=== PATIENT | male | born 1985 | race Caucasian/White ===

== ENCOUNTER 2021-05-19 19:07 | Emergency (ER) | payer SELFPAY ==
[~2021-05-19] VITALS: Ht 193 cm; Wt 122.0 kg
--- OUTSIDE RECORDS SUMMARY | 2021-05-19 19:12 | XMS REPORT | Encounter Summary ---
Author Author [facility] Organization [facility] Address Unknown Phone Unavailable Care Team Providers Care Show Jumping Instructor Name Role Phone Luke Brewer MD PCP Reason for Visit * Reason Comments Back Pain Nausea Encounter Details Care Team Description Date Type Department Gela Jordan PA-C [address] [place] [address] Gastroenteritis (Primary Dx) 03/30/2021 Emergency [facility] [address] [place] [address] Social History Date Tobacco Use Types Packs/Day Years Used Current Every Day Smoker Cigarettes 1 Smokeless Tobacco: Never Used Comments Alcohol Use Standard Drinks/Week Never 0 (1 standard drink = 0.6 o z pure alcohol) Alcohol Habits Answer Date Recorded How often do you have a drink containing alcohol? Never 03/30/2021 How many drinks containing alcohol do you have on No t asked a typical day when you are drinking? How often do you have six or more drinks on one Not asked occasion? Comment: Not asked Sex Assigned at Date Recorded Not on file documented as of this encounter Last Filed Vital Signs Reading Time Taken Comments Vital Sign 137/88 03/30/2021 10:22 AM CDT Blood Pressure 80 03/30/2021 10:22 AM CDT Pulse 36.1 C (97 F) 03/30/2021 10:22 AM CDT Temperature 18 03/30/2021 10:22 AM CDT Respiratory Rate 98% 03/30/2021 10:22 AM CDT Oxygen Saturation - - Inhaled Oxygen Concentration 122.5 kg (270 lb) 03/30/2021 7:29 AM CDT Weight 190.5 cm (6' 3") 03/30/2021 7:29 AM CDT Height 33.75 03/30/2021 7:29 AM CDT Body Mass Index documented in this encounter Discharge Instructions * Instructions* Gela Jordan PA-C - 03/30/2021 Start Zofran and Protonix Clear liquid diet, advance as tolerated Follow up with Dr Brewer Monday for recheck Any worsening of symptoms follow up in ER * Attachments The following attachments cannot be sent through Care Everywhere.* Gastroenteritis, Noninfectious (Vietnamese) documented in this encounter Medications at Time of Discharge Start Date End Date Medication Sig Dispensed Refills cetirizine (ZYRTEC) 10 mg Take by 0 cap mouth. fluticasone propionate Use 1 spray 0 (FLONASE) 50 in each mcg/actuation nasal spray nostril daily. naproxen (NAPROSYN) 250 Take 250 mg 0 MG tablet by mouth 2 (two) times a day with meals. 03/30/2021 ondansetron (ZOFRAN ODT) Take 1 tablet 20 tablet 0 4 MG disintegrating (4 mg total) tablet by mouth every 8 (eight) hours as needed for nausea. 03/30/2021 pantoprazole (PROTONIX) Take 2 30 tablet 0 20 MG tablet tablets (40 mg total) by mouth daily. documented as of this encounter ED Notes * Charisma Priest RN - 03/30/2021 9:37 AM CDT Called to patient room. Pt has complaints of itching all over. He is requestin gatito mistry. Pain down to 2/10. * Charisma Priest RN - 03/30/2021 9:14 AM CDT Pt states that his pain is down to a 3/10 but he is still grimacing. His stomac h pain is gone. * Gela Jordan PA-C - 03/30/2021 8:04 AM CDT [facility] Chief Complaint Patient presents with Back Pain Nausea Chief complaint: Abdominal pain, low back pain History of present illness: 36-year-old male presents to the emergency room per private vehicle with concern of left lower quadrant, left flank pain. Patient s tates pain started abruptly at approximately 0 500 this morning. Pain has been persistently sharp, moderate to severe, has not noticed anything that worsens or improves the discomfort. Patient has been on a 10-day quarantine secondary to being exposed to Covid from a family member but denies any cough, shortness of b reath, fever or chills. Patient has had a history of kidney stones but was able to pass it without any complications several years ago. Patient does admit to nausea, vomiting this a.m. Past Medical History: Diagnosis Date History of stomach ulcers Hypertension Past Surgical History: Procedure Laterality Date ABDOMINAL SURGERY No family history on file. Social History Tobacco Use Smoking status: Current Every Day Smoker Packs/day: 1.00 Types: Cigarettes Smokeless tobacco: Never Used Vaping Use Vaping Use: Never used Substance Use Topics Alcohol use: Never Drug use: Never Review of Systems Constitutional: Negative. HENT: Negative. Eyes: Negative. Respiratory: Negative. Cardiovascular: Negative. Gastrointestinal: Positive for abdominal pain, nausea and vomiting. Genitourinary: Negative. Musculoskeletal: Negative. Skin: Negative. Neurological: Negative. Hematological: Negative. Physical Exam BP 126/81 | Pulse 87 | Temp 97.8 F (36.6 C) (Oral) | Resp 18 | Ht 1.905 m (6' 3") | Wt 122.5 kg (270 lb) | SpO2 94% | BMI 33.75 kg/m Weight Method: Stated O2 Device: None (Room air) Physical Exam Constitutional: General: He is in acute distress. HENT: Head: Normocephalic and atraumatic. Nose: Nose normal. Mouth/Throat: Mouth: Mucous membranes are moist. Pharynx: Oropharynx is clear. Cardiovascular: Rate and Rhythm: Normal rate and regular rhythm. Pulmonary: Effort: Pulmonary effort is normal. Abdominal: General: Abdomen is flat. There is no distension. Palpations: There is no mass. Tenderness: There is abdominal tenderness. There is left CVA tenderness and g uarding. There is no rebound. Hernia: No hernia is present. Musculoskeletal: General: Normal range of motion. Skin: General: Skin is warm. Capillary Refill: Capillary refill takes less than 2 seconds. Neurological: General: No focal deficit present. ED Course Procedures MDM Results for orders placed or performed during the hospital encounter of 03/30/21 (from the past 24 hour(s)) Electrocardiogram (ECG) Result Value Ref Range QRSd 96 QT 388 QTC 448 ECGHR 80 ECGPR 160 CBC and Diff (manual diff if necessary) Result Value Ref Range WBC 10.34 4.00 - 11.00 TH/uL RBC 4.90 4.31 - 5.84 MIL/uL Hemoglobin 15.5 13.0 - 17.0 g/dL Hematocrit 44 40 - 50 % MCV 90 80.0 - 99.0 fL MCH 32 27.0 - 34.0 pg MCHC 35 32 - 36 % RDW 13.9 11.5 - 14.5 % Platelet Count 257 140 - 400 TH/uL MPV 10.7 9.4 - 12.3 fL % Neutrophils 65 45 - 78 % %Lymphocytes 21 15 - 47 % % Monocytes 6 0 - 12 % %Eosinophils 7 0 - 7 % %Basophils 1 0 - 2 % % Imm Grans 0 0 - 1 # Granulocytes 6.68 1.7 - 6.8 TH/uL # Lymphocytes 2.20 1.00 - 3.30 TH/uL # Monocytes 0.65 0.20 - 0.90 TH/uL # Eosinophils 0.68 (H) 0.00 - 0.40 TH/uL # Basophils 0.11 (H) 0.00 - 0.10 TH/uL Comprehensive Metabolic Panel Result Value Ref Range Sodium 140 133 - 147 MEQ/L Potassium 4.1 3.5 - 5.3 MEQ/L Chloride 111 96 - 112 MEQ/L Carbon Dioxide 22 20 - 32 MEQ/L Anion Gap 7 5 - 17 Calcium 9.2 8.4 - 10.5 mg/dL Glucose 110 (H) 70 - 100 mg/dL Protein Total Serum 6.6 6.0 - 8.2 g/dL Albumin 4.0 3.5 - 5.0 g/dL Alkaline Phosphatase 82 42 - 140 IU/L Alanine Aminotransferase 24 0 - 49 IU/L Aspartate Aminotransferase 35 15 - 46 IU/L Bilirubin Total 0.3 0.2 - 1.3 mg/dL Blood Urea Nitrogen 27 (H) 7 - 26 mg/dL Creatinine 0.9 0.6 - 1.3 mg/dL eGFR Male AA 114 60 - 200 mL/min/1.73sq m eGFR Male Non-AA 94 60 - 200 mL/min/1.73sq m Lipase Result Value Ref Range Lipase 75 23 - 300 IU/L Troponin Result Value Ref Range Troponin <0.01 0.00 - 0.03 ng/mL COVID FLU PCR - Rapid Specimen: NASOPHARYNGEAL SWAB Result Value Ref Range Influenza A PCR Not Detected Not Detected Influenza B PCR Not Detected Not Detected Source Nasopharynx SARS-CoV-2 PCR Negative Negative Urinalysis Reflex Result Value Ref Range Appearance, Urine Yellow Glucose Urine Negative Negative mg/dL Bilirubin Urine Negative Negative Ketones Urine Negative Negative mg/dL Specific [place], UA 1.025 1.001 - 1.030 Hemoglobin Urine Negative Negative PH Urine 5.5 5.0 - 8.0 Protein Urine Qual Negative Negative mg/dL Urobilinogen Urine Negative Negative EU/dL Nitrite Urine Negative Negative Leukocyte Esterase Negative Negative Electrocardiogram (ECG) Result Date: 03/30/2021 [facility] Test Date: 2021-03-30 Pat N dariela: JUMA BELTRE Department: [facility] ED Room: [facility] Gender: Male Techni juliane: [id number] : [id number] Requested By: GELA JORDAN Order Number: [id number] Reading MD: Measurements Intervals [place] Rate: 80 P: 60 NC: 160 QRS: 71 QRSD: 96 T: 47 QT: 388 QTc: 448 Interpretive Statements SINUS RHYTHM BORDERLINE INFERIOR Q WAVES CT Abdomen Pelvis wo contrast Result Date: 03/30/2021 Patient: JUMA BELTRE Sex#: M #: 1985 Toan#: [id number] Location: [facility] ED AED-03 Order ing Provider: GELA JORDAN Procedure Requested: [id number] CT ABDOMEN PELVIS WO CONTRAST Reason for Exam: Abdominal Pain Exam Ordered: 03/30/2021 0802 B egin exam date/time: 03/30/2021819 Exam Date/Time: 03/30/2021824 RAD IOLOGIC EXAM: ( 1. CT ABDOMEN WITHOUT CONTRAST. 2. CT PELVIS WITHOUT CONTRAST. I NDICATION: Abdominal pain PROCEDURE: Axial images obtained through the abdomen and pelvis without the administration of contrast. COMPARISON:none The evaluatio n of small lesions is hampered without the administration of contrast. ABDOMEN/P KIMMY FINDINGS: 1. LUNG BASES: The lung bases are clear without focal abnormali ties. 2. LIVER: The liver is normal in size without focal abnormalities. 3. SPL EEN: The spleen is normal in size without focal abnormalities. 4. GALLBLADDER/B ILE DUCTS: The gallbladder demonstrates no wall thickening or pericholecystic f luid. No significant bile duct dilatation is seen. 5. PANCREAS: The pancreas is normal in size without focal abnormalities or inflammatory change. 6. ADRENALS: The adrenals are normal in size with out focal mass or enlargement. 7. KIDNEYS: The kidneys demonstrate no radiopaque stones. No significant focal renal abno rmalities are seen on this noncontrast study. No significant hydroureter is seen . 8. RETROPERITONEUM: Mild aortic and plaquing without aneurysm noted. No adeno marisa is noted. 9. BOWEL: No focal bowel inflammatory changes are identified. N o obstruction, wall thickening, or other acute process is seen. No appendicitis is seen. 10. PERITONEUM: No free air, ascites, abscess, or other acute changes are seen. 11. BLADDER: The bladder demonstrates no significant wall thickening or inflammatory changes. No pelvic masses or pelvic adenopathy are seen. 12. ALEXANDRA WILLA: Mild to moderate degenerative disc changes are seen at several levels with some anterior spurring. No acute bony changes are seen. 13: MISCELLANEOUS: No other significant findings are detected. No obstructing stones or hydronephrosis seen No acute bowel inflammatory ch anges are seen. No abscess or free air is seen Dose reduction technique was used including one or more of the following: automated exposure control, iterative r econstruction technique, adjustment of MAA and KV according patient size and/or scan done according to ALARA (exposure dose as low as reasonably achievable). Medications Administered During Visit Medications sodium chloride 0.9% (NS) IV Bolus (1,000 mL Intravenous New Bag 03/30/21 0837) HYDROmorphone (DILAUDID) injection 1 mg (1 mg Intravenous Given 03/30/21 0813) ondansetron (ZOFRAN) injection 4 mg (4 mg Intravenous Given 03/30/21 0814) HYDROmorphone (DILAUDID) injection 1 mg (1 mg Intravenous Given 03/30/21 0846) famotidine (PEPCID) injection 20 mg (20 mg Intravenous Given 03/30/21 0856) Patient's Medications New Prescriptions ONDANSETRON (ZOFRAN ODT) 4 MG DISINTEGRATING TABLET Take 1 tablet (4 mg tota l) by mouth every 8 (eight) hours as needed for nausea. PANTOPRAZOLE (PROTONIX) 20 MG TABLET Take 2 tablets (40 mg total) by mouth d aily. Previous Medications CETIRIZINE (ZYRTEC) 10 MG CAP Take by mouth. FLUTICASONE PROPIONATE (FLONASE) 50 MCG/ACTUATION NASAL SPRAY Use 1 spray in each nostril daily. NAPROXEN (NAPROSYN) 250 MG TABLET Take 250 mg by mouth 2 (two) times a day w ith meals. Modified Medications No medications on file Discontinued Medications No medications on file Filed VS 03/30/21 0703/[id number] BP: (!) 141/92 126/81 Pulse: 87 Resp: 18 Temp: 97.8 F (36.6 C) SpO2: 96% 94% No follow-up provider specified. Patient given instructions. ED Clinical Impression 1. Gastroenteritis Start Zofran and Protonix Clear liquid diet, advance as tolerated Follow up with Dr Brewer Monday for recheck Any worsening of symptoms follow up in ER Patient ED Dispo ED Disposition Discharge Gela Jordan PA-C 03/30/21 1008 * Charisma Priest RN - 03/30/2021 7:53 AM CDT Pt ambulatory to ED 3 with chief complaint of back pain. Pt states that when he woke up at 0500, his pain was 8/10. In addition, he threw up yellow colored em esis. He does not know if he threw up due to the pain or if he was just nauseau s. Back pain is in low back. Pt does admit to black tarry stools and he has ulloa d a history of stomach ulcers. documented in this encounter Plan of Treatment Not on filedocumented as of this encounter Procedures Comments Procedure Name Priority Date/Time Associated Diag nosis URINALYSIS REFLEX STAT 03/30/2021 8:45 AM CDT COVID FLU PCR - RAPID STAT 03/30/2021 8:[address] ABDOMEN PELVIS WO STAT 03/30/2021 CONTRAST 8:25 AM CDT TROPONIN STAT 03/30/2021 7:48 AM CDT LIPASE STAT 03/30/2021 7:48 AM CDT COMPREHENSIVE METABOLIC STAT 03/30/2021 PANEL 7:48 AM CDT CBC AND DIFF (MANUAL DIFF STAT 03/30/2021 IF NECESSARY) 7:48 AM CDT ECG STAT 03/30/2021 7:41 AM CDT documented in this encounter Results * Urinalysis Reflex (03/30/2021 8:45 AM CDT) [facility] Appearance, Yellow [facility] Urine [facility] Lab Glucose Urine Negative Negative mg/dL [facility] Bilirubin Urine Negative Negative [facility] Lab Ketones Urine Negative Negative mg/dL [facility] Specific 1.025 1.001 - 1.030 [facility] [place], [facility] Lab Hemoglobin Negative Negative [facility] Lab PH Urine 5.5 5.0 - 8.0 [facility] Protein Urine Negative Negative mg/dL [facility] Qual [facility] Urobilinogen Negative Negative EU/dL [facility] Lab Nitrite Urine Negative Negative [facility] Leukocyte Negative Negative [facility] Esterase [facility] Lab Specimen Clean Voided Urine Performing Organization Address City/State/ZIP Code P candice Number [address] [address] Lab * COVID FLU PCR - Rapid (03/30/2021 8:39 AM CDT) [facility] Influenza A PCR Not Detected Not Detected [facility] Lab Influenza B PCR Not Detected Not Detected [facility] Lab Source Nasopharynx [facility] SARS-CoV-2 PCR NegativeComment: This RT-PCR Negative A [facility] test has been authorized by Hospital Lab the FDA under an Emergency Use Authorization (EUA) for use by authorized laboratories. Specimen NASOPHARYNGEAL SWAB Performing Organization Address City/State/ZIP Code P candice Number [place] [address] [place] [address] LAB [place] [address] [place], [place] [address] Lab * CT Abdomen Pelvis wo contrast (03/30/2021 8:25 AM CDT) Modality Anatomical Region Laterality Computed Tomography Abdomen, Pelvis Specimen Impressions [facility] - 03/30/2021 8:37 AM CDT No obstructing stones or hydronephrosis seen No acute bowel inflammatory changes are seen. No abscess or free air is seen Dose reduction technique was used including one or more of the following: automated exposure control, iterative reconstruction technique, adjustment of MAA and KV according patient size and/or scan done according to ALARA (exposure dose as low as reasonably achievable). Narrative [facility] - 03/30/2021 8:37 AM CDT Patient: JUMA BELTRE Sex#: M #: 1985 Toan#: [id number] Location: [facility]-03 Ordering Provider: GELA JORDAN Procedure Requested: [id number] CT ABDOMEN PELVIS WO CONTRAST Reason for Exam: Abdominal Pain Exam Ordered: 03/30/2021 0802 Begin exam date/time: 03/30/2021 0820 Exam Date/Time: 03/30/2021 0825 RADIOLOGIC EXAM: ( 1. CT ABDOMEN WITHOUT CONTRAST. 2. CT PELVIS WITHOUT CONTRAST. INDICATION: Abdominal pain PROCEDURE: Axial images obtained through the abdomen and pelvis without the administration of contrast. COMPARISON:none The evaluation of small lesions is hampered without the administration of contrast. ABDOMEN/PELVIS FINDINGS: 1. LUNG BASES: The lung bases are kye r without focal abnormalities. 2. LIVER: The liver is normal in size without focal abnormalities. 3. SPLEEN: The spleen is normal in siz e without focal abnormalities. 4. GALLBLADDER/BILE DUCTS: The gallbla dder demonstrates no wall thickening or pericholecystic fluid. No significant bile duct dilatation is seen. 5. PANCREAS: The pancreas is normal in size without focal abnormalities or inflammatory change. 6. ADRENALS: The adrenals are normal i n size with out focal mass or enlargement. 7. KIDNEYS: The kidneys demonstrate no radiopaque stones. No significant focal renal abnormalities are seen on this noncontrast study. No significant hydroureter is seen. 8. RETROPERITONEUM: Mild aortic and pl aquing without aneurysm noted. No adenopathy is noted. 9. BOWEL: No focal bowel inflammatory changes are identified. No obstruction, wall thickening, or other acute process is seen. No appendicitis is seen. 10. PERITONEUM: No free air, ascites, abscess, or other acute changes are seen. 11. BLADDER: The bladder demonstrates no significant wall thickening or inflammatory changes. No pelvic masses or pelvic adenopathy are seen. 12. BONES: Mild to moderate degenerati ve disc changes are seen at several levels with some anterior spurring. No acute bony changes are seen. 13: MISCELLANEOUS: No other significan t findings are detected. Procedure Note Luke Curiel MD - 03/30/2021 Patient: JUMA BELTRE Sex#: M #: 1985 Toan#: [id number] Location: [place] [address] Ordering Provider: GELA JORDAN Procedure Requested: [id number] CT ABDOMEN PELVIS WO CONTRAST Reason for Exam: Abdominal Pain Exam Ordered: 03/30/2021 0802 Begin exam date/time: 03/30/2021 0820 Exam Date/Time: 03/30/2021 0825 RADIOLOGIC EXAM: ( 1. CT ABDOMEN WITHOUT CONTRAST. 2. CT PELVIS WITHOUT CONTRAST. INDICATION: Abdominal pain PROCEDURE: Axial images obtained through the abdomen and pelvis without the administration of contrast. COMPARISON:none The evaluation of small lesions is hampered without the administration of contrast. ABDOMEN/PELVIS FINDINGS: 1. LUNG BASES: The lung bases are clear without focal abnormalities. 2. LIVER: The liver is normal in size w ithout focal abnormalities. 3. SPLEEN: The spleen is normal in size without focal abnormalities. 4. GALLBLADDER/BILE DUCTS: The gallblad maddy demonstrates no wall thickening or pericholecystic fluid. No significant bile duct dilatation is seen. 5. PANCREAS: The pancreas is normal in size without focal abnormalities or inflammatory change. 6. ADRENALS: The adrenals are normal in size with out focal mass or enlargement. 7. KIDNEYS: The kidneys demonstrate no radiopaque stones. No significant focal renal abnormalities are seen on this noncontrast study. No significant hydroureter is seen. 8. RETROPERITONEUM: Mild aortic and ignacia quing without aneurysm noted. No adenopathy is noted. 9. BOWEL: No focal bowel inflammatory c hanges are identified. No obstruction, wall thickening, or other acute process is seen. No appendicitis is seen. 10. PERITONEUM: No free air, ascites, a bscess, or other acute changes are seen. 11. BLADDER: The bladder demonstrates n o significant wall thickening or inflammatory changes. No pelvic masses or pelvic adenopathy are seen. 12. BONES: Mild to moderate degenerativ e disc changes are seen at several levels with some anterior spurring. No acute bony changes are seen. 13: MISCELLANEOUS: No other significant findings are detected. IMPRESSION No obstructing stones or hydronephrosis seen No acute bowel inflammatory changes are seen. No abscess or free air is seen Dose reduction technique was used including one or more of the following: automated exposure control, iterative reconstruction technique, adjustment of MAA and KV according patient size and/or scan done according to ALARA (exposure dose as low as reasonably achievable). Performing Organization Address [facility] P candice Number [facility] * Troponin (03/30/2021 7:48 AM CDT) Troponin <0.01 0.00 - 0.03 ng/mL Josh Adrian ntperez Comment: Hospital Lab Troponin Value Interpretation 0.00 - 0.03 Healthy 0.04 - 0.12 Increased Cardiac Risk >0.12 Myocardial Infarction Troponin may not become elevated until 6 to 8 hours after onset of symptoms. Specimen Blood Performing Organization Address [facility] P candice Number [address] [address] Lab * Lipase (03/30/2021 7:48 AM CDT) Lipase 75 23 - 300 IU/L [facility] Specimen Blood Performing Organization Address [facility] P candice Number [address] [address] Lab * Comprehensive Metabolic Panel (03/30/2021 7:48 AM CDT) Sodium 140 133 - 147 MEQ/L [facility] Potassium 4.1 3.5 - 5.3 MEQ/L [facility] Chloride 111 96 - 112 MEQ/L [facility] Carbon Dioxide 22 20 - 32 MEQ/L [facility] Anion Gap 7 5 - 17 [facility] Calcium 9.2 8.4 - 10.5 mg/dL [facility] Lab Glucose 110 (H) 70 - 100 mg/dL [facility] Protein Total 6.6 6.0 - 8.2 g/dL [facility] Serum [facility] Albumin 4.0 3.5 - 5.0 g/dL [facility] Alkaline 82 42 - 140 IU/L [facility] Phosphatase [facility] Alanine 24 0 - 49 IU/L [facility] e Aspartate 35 15 - 46 IU/L [facility] e Bilirubin Total 0.3 0.2 - 1.3 mg/dL [facility] Blood Urea 27 (H) 7 - 26 mg/dL [facility] Nitrogen [facility] Creatinine 0.9 0.6 - 1.3 mg/dL [facility] Lab eGFR Male AA 114 60 - 200 [facility] mL/min/1.73sq [facility] Lab eGFR Male 94 60 - 200 [facility] Non-AA mL/min/1.73sq [facility] Specimen Blood Performing Organization Address City/State/ZIP Code P candice Number [address] [address] Lab * CBC and Diff (manual diff if necessary) (03/30/2021 7:48 AM CDT) WBC 10.34 4.00 - 11.00 TH/uL [facility] RBC 4.90 4.31 - 5.84 MIL/uL [facility] Hemoglobin 15.5 13.0 - 17.0 g/dL [facility] Hematocrit 44 40 - 50 % [facility] MCV 90 80 - 99 fL [facility] MCH 32 27 - 34 pg [facility] MCHC 35 32 - 36 % [facility] RDW 13.9 11.5 - 14.5 % [facility] Platelet Count 257 140 - 400 TH/uL [facility] Lab MPV 10.7 9.4 - 12.3 fL [facility] % Neutrophils 65 45 - 78 % [facility] %Lymphocytes 21 15 - 47 % [facility] % Monocytes 6 0 - 12 % [facility] %Eosinophils 7 0 - 7 % [facility] %Basophils 1 0 - 2 % [facility] % Imm Grans 0 0 - 1 [facility] # Granulocytes 6.68 1.7 - 6.8 TH/uL [facility] Lab # Lymphocytes 2.20 1.0 - 3.3 TH/uL [facility] Lab # Monocytes 0.65 0.2 - 0.9 TH/uL [facility] Lab # Eosinophils 0.68 (H) 0.0 - 0.4 TH/uL [facility] Lab # Basophils 0.11 (H) 0.0 - 0.1 TH/uL [facility] Specimen Blood Performing Organization Address City/State/ZIP Code P candice Number [address] [address] Lab * Electrocardiogram (ECG) (03/30/2021 7:41 AM CDT) QRSd 96 [facility] QT 388 [facility] QTC 448 [facility] ECGHR 80 [facility] ECGPR 160 [facility] Specimen Narrative [facility] - 03/30/2021 9:42 AM CDT [facility] Test Date: 2021-03-30 Pat Name: JUMA BELTRE Department: [facility] Gender[facility] Male 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1985 Requested By: GELA JORDAN Order Number: [id number] Bony NICE: Sampson Alas Measurements Intervals [place] Rate: 80 P: 60 NC: 160 QRS: 71 QRSD: 96 T: 47 QT: 388 QTc: 448 Interpretive Statements SINUS RHYTHM NONSPECIFIC ST-T ABNORMALITY Electronically Signed On 03-30-2021 9:42:40 CDT by Sampson Alas Procedure Note Sampson Alas MD - 03/30/2021 [facility] Test Date: 2021-03-30 Pat Name: JUMA BELTRE Department: [facility] Gender: Male 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1985 Requested By: GELA JORDAN Order Number: [id number] Bony MD: Sampson Alas Measurements Intervals [place] Rate: 80 P: 60 NC: 160 QRS: 71 QRSD: 96 T: 47 QT: 388 QTc: 448 Interpretive Statements SINUS RHYTHM NONSPECIFIC ST-T ABNORMALITY Electronically Signed On 03-30-2021 9:42:40 CDT by Sampson Alas Performing Organization Address City/State/ZIP Code P candice Number [place] documented in this encounter Visit Diagnoses Diagnosis Gastroenteritis - Primary Other and unspecified noninfectious gas troenteritis and colitis documented in this encounter Administered Medications Action Date Dose Rate Site Medication Order MAR Action 03/30/2021 8:56 AM CDT 20 mg famotidine (PEPCID) injection 20 mg Given 20 mg, Intravenous, Once, On Mon 1 at 0915, For 1 dose 03/30/2021 8:13 AM CDT 1 mg HYDROmorphone (DILAUDID) injection 1 mg Given 1 mg, Intravenous, Once, On Mon03/30/21 at 0830, For 1 dose, Administer at a ma x rate of 1 mg/min; max dose for IVP is 4 mg. Note: Limit does not apply to patients who may be tolerant to opioid therapy or on continuous IV or PO opiat e therapy. 03/30/2021 8:46 AM CDT 1 mg HYDROmorphone (DILAUDID) injection 1 mg Given 1 mg, Intravenous, Once, Indications: prn pain, On Mon03/30/21 at 0845, For 1 dose, Administer at a max rate of 1 mg/min; max dose for IVP is 4 mg. Note: Limit does not apply to patients who ma y be tolerant to opioid therapy or on continuous IV or PO opiate therapy. 03/30/2021 8:14 AM CDT 4 mg ondansetron (ZOFRAN) injection 4 mg Given 4 mg, Intravenous, Once, On Mon03/30/21 at 0830, For 1 dose 03/30/2021 8:37 AM CDT 1,000 mL sodium chloride 0.9% (NS) IV Bolus New Bag 1,000 mL, Intravenous, Once, On Mon03/30/21 at 0830, For 1 dose documented in this encounter Active and Recently Administered Medications Times are shown in CDT. 2021 03/30/2021 Medication Order 03/28/2021 0856 (Given - Provider: Fernando Cameron) famotidine (PEPCID) injection 20 mg (COMPLETED) 20 mg, Intravenous, Once, On Mon 1 at 0915, For 1 dose 0813 (Given - Provider: Fernando Cameron) HYDROmorphone (DILAUDID) injection 1 mg (COMPLETED) 1 mg, Intravenous, Once, On Mon03/30/21 at 0830, For 1 dose, Administer at a ma x rate of 1 mg/min; max dose for IVP is 4 mg. Note: Limit does not apply to patients who may be tolerant to opioid therapy or on continuous IV or PO opiat e therapy. 0846 (Given - Provider: Fernando Cameron) HYDROmorphone (DILAUDID) injection 1 mg (COMPLETED) 1 mg, Intravenous, Once, Indications: prn pain, On Mon03/30/21 at 0845, For 1 dose, Administer at a max rate of 1 mg/min; max dose for IVP is 4 mg. Note: Limit does not apply to patients who ma y be tolerant to opioid therapy or on continuous IV or PO opiate therapy. 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
--- OUTSIDE RECORDS SUMMARY | 2021-05-19 19:12 | XMS REPORT | Clinical Summary ---
Author Author [facility] Organization [facility] Address Unknown Phone Unavailable Care Team Providers Care Environmental Advisor Name Role Phone Luke Brewer MD PCP Allergies Comments Active Allergy Reactions Severity Noted Date Bee Sting 03/30/2021 Medications End Date Status Medication Sig Dispensed Refills Start Date Active fluticasone propionate Use 1 spray 0 (FLONASE) 50 in each mcg/actuation nasal spray nostril daily. Active naproxen (NAPROSYN) 250 Take 250 mg 0 MG tablet by mouth 2 (two) times a day with meals. Active cetirizine (ZYRTEC) 10 mg Take by 0 cap mouth. Active ondansetron (ZOFRAN ODT) Take 1 tablet 20 tablet 0 4 MG disintegrating (4 mg total) 1 tablet by mouth every 8 (eight) hours as needed for nausea. Active pantoprazole (PROTONIX) Take 2 30 tablet 0 20 MG tablet tablets (40 1 mg total) by mouth daily. Active Problems Not on file Encounters Care Team Description Date Type Specialty Gela Jordan PA-C Gastroenteritis (Primary Dx) 03/30/2021 Emergency Emergency Medicine from Last 3 Months Social History Date Tobacco Use Types Packs/Day [...] Assigned at Date Recorded Not on file Last Filed Vital Signs Reading Time Taken [...] 03/30/2021 7:29 AM CDT Body Mass Index Plan of Treatment Health Maintenance Due Date Last Done Comments Td/Tdap# 1985 Tobacco Cessation 1985 Counseling # Pneumococcal Vaccine: 1989 Pediatrics (0 to 5 Years) and At-Risk Patients (6 to 64 Years) (1 of 2 - PPSV23) COVID-19 Vaccine (1) 1995 Influenza Vaccine (#1) 2021 Procedures Comments Procedure Name Priority Date/Time Associated [...] CDT ECG STAT 03/30/2021 7:41 AM CDT from Last 3 Months Results * Urinalysis Reflex (03/30/2021 8:45 AM CDT) Appearance, Yellow [facility] Lab Glucose Urine Negative Negative mg/dL [facility] Lab Bilirubin Urine Negative Negative [facility] Lab Ketones Urine Negative Negative mg/dL [facility] Lab Specific 1.025 1.001 - 1.030 [facility] [place] Lab Hemoglobin Negative Negative [facility] Lab PH Urine 5.5 5.0 - 8.0 [facility] Lab Protein Urine Negative Negative mg/dL [facility] Lab Urobilinogen Negative Negative EU/dL [facility] Lab Nitrite Urine Negative Negative [facility] Lab Leukocyte Negative Negative [facility] Lab Specimen Clean Voided Urine Performing Organization Address City/[facility]/ZIP Code P candice Number [address] [address] LAB [place] [phone] Lab * COVID FLU PCR - Rapid (03/30/2021 8:39 AM CDT) Influenza A PCR Not Detected Not Detected [facility] Lab Influenza B PCR Not Detected Not Detected [facility] Lab Source Nasopharynx [facility] Lab SARS-CoV-2 PCR NegativeComment: This RT-PCR Negative A [facility] test has been authorized by Hospital Lab the [facility] under an Emergency Use Authorization (EUA) for use by authorized laboratories. Specimen NASOPHARYNGEAL SWAB Performing Organization Address [facility] P candice Number [address] [address] LAB [place] [phone] Lab * CT Abdomen Pelvis wo contrast (03/30/2021 8:25 AM CDT) Modality Anatomical Region Laterality Computed Tomography Abdomen, Pelvis Specimen Impressions [facility] - 03/30/2021 8:37 AM CDT No obstructing [...] dose as low as reasonably achievable). Narrative [facility] - 03/30/2021 8:37 AM CDT Patient: JUMA BELTRE Sex#: [id number] #: [id number] Toan#: [id number] Location: [facility] Ordering Provider: GELA JORDAN Procedure Requested: [id number] CT ABDOMEN PELVIS WO CONTRAST Reason for [...] MD - 03/30/2021 Patient: JUMA BELTRE Sex#: Hugo #: [id number] Toan#: [id number] Location: [facility] AED-03 Ordering Provider: GELA JORDAN Procedure Requested: [id number] CT ABDOMEN PELVIS WO CONTRAST Reason for [...] low as reasonably achievable). Performing Organization Address City/State/ZIP Code P candice Number [facility] * Troponin (03/30/2021 7:48 AM CDT) [facility] Troponin <0.01 0.00 - 0.03 ng/mL [facility] Comment: Hospital Lab Troponin Value Interpretation 0.00 - 0.03 Healthy 0.04 - 0.12 Increased Cardiac Risk >0.12 Myocardial Infarction Troponin may not become elevated until 6 to 8 hours after onset of symptoms. Specimen Blood Performing Organization Address City/[facility] P [facility] Number [address] [address] LAB [place] [phone] Lab * Lipase (03/30/2021 7:48 AM CDT) [facility] Lipase 75 23 - 300 IU/L [facility] Lab Specimen Blood Performing Organization Address [facility] Number [address] [address] LAB [place] [phone] Lab * Comprehensive Metabolic Panel (03/30/2021 7:48 AM CDT) [facility] Sodium 140 133 - 147 MEQ/L [facility] Lab Potassium 4.1 3.5 - 5.3 MEQ/L [facility] Lab Chloride 111 96 - 112 MEQ/L [facility] Lab Carbon Dioxide 22 20 - 32 MEQ/L [facility] Lab Anion Gap 7 5 - 17 [facility] Lab Calcium 9.2 8.4 - 10.5 mg/dL [facility] Lab Glucose 110 (H) 70 - 100 mg/dL [facility] Lab Protein Total 6.6 6.0 - 8.2 g/dL [facility] Serum [facility] Lab Albumin 4.0 3.5 - 5.0 g/dL [facility] Lab Alkaline 82 42 - 140 IU/L [facility] Phosphatase [facility] Lab Alanine 24 0 - 49 IU/L [facility] e Aspartate 35 15 - 46 IU/L [facility] e Bilirubin Total 0.3 0.2 - 1.3 mg/dL [facility] Lab Blood Urea 27 (H) 7 - 26 mg/dL [facility] Nitrogen [facility] Lab Creatinine 0.9 0.6 - 1.3 mg/dL [facility] Lab eGFR Male AA 114 60 - 200 [facility] mL/min/1.73sq [facility] Lab eGFR Male 94 60 - 200 [facility] Non-AA mL/min/1.73sq [facility] Lab Specimen Blood Performing Organization Address [facility] P candice Number [facility] [address] [place] [address] [address] Lab * CBC and Diff (manual diff if necessary) (03/30/2021 7:48 AM CDT) WBC 10.34 4.00 - 11.00 TH/uL [facility] Lab RBC 4.90 4.31 - 5.84 MIL/uL [facility] Lab Hemoglobin 15.5 13.0 - 17.0 g/dL [facility] Lab Hematocrit 44 40 - 50 % [facility] Lab MCV 90 80 - 99 [facility] Lab MCH 32 27 - 34 pg [facility] Lab MCHC 35 32 - 36 % [facility] Lab RDW 13.9 11.5 - 14.5 % [facility] Lab Platelet Count 257 140 - 400 TH/uL [facility] Lab MPV 10.7 9.4 - 12.3 [facility] Lab % Neutrophils 65 45 - 78 % [facility] Lab %Lymphocytes 21 15 - 47 % [facility] Lab % Monocytes 6 0 - 12 % [facility] Lab %Eosinophils 7 0 - 7 % [facility] Lab %Basophils 1 0 - 2 % [facility] Lab % Imm Grans 0 0 - 1 [facility] Lab # Granulocytes 6.68 1.7 - 6.8 TH/uL [facility] Lab # Lymphocytes 2.20 1.0 - 3.3 TH/uL [facility] Lab # Monocytes 0.65 0.2 - 0.9 TH/uL [facility] Lab # Eosinophils 0.68 (H) 0.0 - 0.4 TH/uL [facility] Lab # Basophils 0.11 (H) 0.0 - 0.1 TH/uL [facility] Lab Specimen Blood Performing Organization Address [facility] P candice Number [address] [address] [address] [address] Lab * Electrocardiogram (ECG) (03/30/2021 7:41 AM CDT) QRSd 96 [facility] QT 388 [facility] QTC 448 [facility] ECGHR 80 [facility] ECGPR 160 [facility] Specimen Narrative [facility] - 03/30/2021 9:42 AM CDT [facility] Test Date: 2021-03-30 Pat Name: JUMA HERNANDEZID Department: [facility] ED Room: [facility] Gender: Male 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 : 1985 Requested By: GELA JORDAN Order Number: [id number] Reading MD: Sampson Alas Measurements Intervals [place] Rate: 80 P: 60 RI: 160 QRS: 71 QRSD: 96 T: 47 QT: 388 QTc: 448 Interpretive Statements SINUS RHYTHM NONSPECIFIC ST-T ABNORMALITY Electronically Signed On 03-30-2021 9:42:40 CDT by Sampson Alas Procedure Note Sampson Alas MD - 03/30/2021 [facility] Test Date: 2021-03-30 Pat Name: JUMA BELTRE Department: [facility] ED Room: [facility] Gender: Male Manufacturing Inspector: [id number] : 1985 Requested By: GELA JORDAN Order Number: [id number] Reading : Sampson Alas Measurements Intervals [place] Rate: 80 P: 60 RI: 160 QRS: 71 QRSD: 96 T: 47 QT: 388 QTc: 448 Interpretive Statements SINUS RHYTHM NONSPECIFIC ST-T ABNORMALITY Electronically Signed On 03-30-2021 9:42:40 CDT by Sampson Alas Performing Organization Address City/State/ZIP Code P candice Number [place] from Last 3 Months Advance Directives For more information, please contact: [phone] 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
--- OUTSIDE RECORDS SUMMARY | 2021-05-19 19:12 | XMS REPORT | Clinical Summary ---
Demographics Home Phone Preferred Language Unknown Marital Status Unknown Yarsanism Affiliation Unknown Race White Ethnic Group Unknown Author Author [facility] Organization [facility] Address Unknown Phone Unavailable Care Team Providers Care Chief Arson Division Name Role Phone PCP Unavailable Allergies Not on File Medications Not on file Active Problems Not on file Social History Date Tobacco Use Types Packs/Day Years Used Never Assessed Sex Assigned at Date Recorded Not on file Last Filed Vital Signs Not on file Plan of Treatment Health Maintenance Due Date Last Done Comments Varicella Vaccines (1 of 1984 2 - 2-dose childhood series) COVID-19 Vaccine (1) 1995 Hepatitis C Screening 2001 DTaP,Tdap,and Td Vaccines 2002 (1 - Tdap) MMR Vaccines-Adult 2002 Influenza Vaccine (#1) 2021 Pneumo-Vaccine: 65+Yrs (1 2048 of 1 - PPSV23) HIB Vaccines Aged Out No longer eligible based on patient's age to complete this topic IPV Vaccines Aged Out No longer eligible based on patient's age to complete this topic Meningococcal Vaccine Aged Out No longer eligib le based on patient's age to complete this topic Pneumo-Vaccine: Peds (0-5 Aged Out No longer el igible based on patient's age to Yrs) & At-Risk Patients complete this topic (6-64 Yrs) Rotavirus Vaccines Aged Out No longer eligible based on patient's age to complete this topic Results Not on filefrom Last 3 Months
[2021-05-19] MEDS ORDERED: TETANUS,DIPTH,PERTUSS P/F (BOOSTRIX) 0.5 ML VIAL IM ONE (19:15)
[2021-05-19] MEDS ORDERED: oxyCODONE/APAP 5/325MG (PERCOCET 5) TABLET PO ONE (19:15)
[2021-05-19] MEDS ORDERED: TRIM/SULFAMETH 160/800 (SEPTRA DS) TAB PO ONE (19:15)
--- NOTE | 2021-05-19 19:33 | ED Lower Extremity ---
General Chief Complaint: Foreign Body Stated Complaint: FOREIGN BODY IN LT LEG Nursing Triage Note: Pt reports he was chopping wood and had a piece of metal hit his left knee. Pt reports pain with ambulation. Unsure of Tetanus status. 2+ DP pulses BLE. Source: patient Exam Limitations: no limitations History of Present Illness Date Seen by Provider: May 19, 2021 Time Seen by Provider: 19:10 Initial Comments This 36-year-old gentleman presents to the emergency room with injury to the left medial knee when he was struck by a metal fragment from a wood splitting wedge while splitting wood this evening. He could identify a missing fragment from the wedge and notes a hole in his sweatpants over the wound and a wound about a centimeter in length on the inferior aspect of the left medial knee. He has rather intense pain and states it feels like he was shot. He was not able to find the metal fragment presumes it is embedded in the tissue. He does not know when his last tetanus immunization was. He is able to ambulate and bear weight. Distal extremity is unremarkable. He reports his foot felt cold in route to the ER but sensation seems normal now. Allergies and Home Medications Allergies Coded Allergies: No Known Drug Allergies (Unverified , 05/19/21) Patient Home Medication List Home Medication List Reviewed: Yes Hydrocodone/Acetaminophen (Hydrocodone-Acetamin 5-325 mg) 1 Each Tablet, 1 TAB PO Q4H PRN for PAIN-MODERATE (5-7) Prescribed by: TANYA RAO on 05/19/212136 Sulfamethoxazole/Trimethoprim (Bactrim Ds Tablet) 1 Each Tablet, 1 EACH PO BID Prescribed by: TANYA RAO on 05/19/212135 Review of Systems Constitutional: no symptoms reported EENTM: no symptoms reported Respiratory: no symptoms reported Cardiovascular: no symptoms reported Gastrointestinal: no symptoms reported Genitourinary: no symptoms reported Musculoskeletal: see HPI Skin: see HPI Psychiatric/Neurological: See HPI Past Ocyrpsd-Ttcqsj-Arysjj Hx Patient Social History Tobacco Use?: Yes Tobacco type used: Cigarettes Smoking Status: Current Everyday Smoker Use of E-Cig and/or Vaping dev: No Substance use?: No Alcohol Use?: No Pt feels they are or have been: No Immunizations Up To Date Influenza Vaccine Up-to-Date: No; Not Current First/Initial COVID19 Vaccinat: October 2020 J&J Past Medical History Surgeries: Yes (facial and head reconstruction age 3 from dog attack trauma, spider bites ) Abdominal (hernia) Respiratory: Yes Asthma Cardiac: No Neurological: No Reproductive Disorders: No Genitourinary: No Gastrointestinal: No Musculoskeletal: No Endocrine: No HEENT: No Cancer: No Psychosocial: No Integumentary: No Physical Exam Vital Signs Vital Signs - First Documented 05/19/21 19:10 Temp 36.6 Pulse 110 Resp 22 B/P (MAP) 168/92 (117) Pulse Ox 98 O2 Delivery Room Air Capillary Refill : Height, Weight, BMI Height: '" Weight: lbs. oz. kg; 32.00 BMI Method: General Appearance: WD/WN, mild distress HEENT: PERRL/EOMI, normal ENT inspection Neck: normal inspection Cardiovascular: regular rate, rhythm, no edema, no murmur Respiratory: lungs clear, normal breath sounds, no respiratory distress Knees: left knee other (1 cm laceration inferior medial knee with no active bleeding. Pain and tenderness in this region and posteriorly. Pain in this re gion with ROM) Ankles: left ankle normal inspection, left ankle normal range of motion, left ankle no evidence of injury Feet: left foot non-tender, left foot normal inspection, left foot normal range of motion, left foot no evidence of injury, left foot other (warm foot, strong dorsal pedal pulse, normal sensation) Neurologic/Tendon: normal sensation, normal motor functions, normal tendon functions Neurologic/Psychiatric: no motor/sensory deficits, alert, normal mood/affect, oriented x 3 Skin: normal color, warm/dry, other (see above) Progress/Results/Core Measures Results/Orders My Orders Orders - TANYA ERVIN MD DiphFouzia pat(Acell),Tet Adult (Boostrix (05/19/21 19:15) Sulfamethoxazole/Trimet Ds Tab (Bactrim (05/19/21 19:15) Oxycodone/Apap 5/325mg Tablet (Percocet (05/19/21 19:15) Knee 3 View Left (05/19/21 19:15) Knee 2 View Left (05/19/21 19:48) Hydrocodone/Apap 5/325 Tablet (Lortab 5 (11/3/21 21:45) Medications Given in ED Current Medications Medications Dose Ordered Sig/Jocy Route Start Time Stop Time Status Last Admin Dose Admin Acetaminophen/ Hydrocodone Bitart 1 ea ONCE ONCE PO 05/19/21 21:45 05/19/21 21:46 DC 05/19/21 21:55 1 EA Diphtheria/ Tetanus/Acell Pertussis 0.5 ml ONCE ONCE IM 05/19/21 19:15 05/19/21 19:18 DC 05/19/21 19:33 0.5 ML Oxycodone/ Acetaminophen 1 tab ONCE ONCE PO 05/19/21 19:15 05/19/21 19:18 DC 05/19/21 19:21 1 TAB Trimethoprim/ Sulfamethoxazole 1 ea ONCE ONCE PO 05/19/21 19:15 05/19/21 19:18 DC 05/19/21 19:22 1 EA Vital Signs/I&O 05/19/21 05/19/21 19:10 21:55 Temp 36.6 36.6 Pulse 110 110 Resp 22 22 B/P (MAP) 168/92 (117) 168/92 Pulse Ox 98 98 O2 Delivery Room Air Room Air Blood Pressure Mean: 117 Progress Progress Note : Progress Note Patient received a tetanus booster and antibiotic prophylaxis with Bactrim. The wound was evaluated with x-ray. The initial three-view x-ray demonstrated no injury to the bony structures. The metallic fragment was identified and seemed to be in the subcutaneous tissue, superficial to the muscle. A repeat x-ray was obtained with a skin marker to determine the objects location in relation to the skin wound. The foreign body was superior and anterior to the wound. The wound was anesthetized with approximately 6 mL lidocaine after cleaning the skin with alcohol. The wound area was then scrubbed with sterile saline and c hlorhexidine. The area was prepped with Betadine. The wound was gently explored with hemostats and visually. The metallic object could be felt but could not be grasped. I discussed the situation with Dr. Shin who advised against cut down to remove the foreign body. He will see the patient in follow- up if needed if he continues to have pain after healing. The wound was irrig ated with 50 mL normal saline using an 18-gauge IV catheter. Wound was then addressed with gauze for absorption. Patient was treated with Percocet and hydrocodone for pain management. See discharge instructions. Diagnostic Imaging Diagonstic Imaging: Xray Plain Films/CT/US/NM/MRI: knee Comments 3 view knee x-ray viewed by me and report reviewed. See report below: NAME: HENRY BELTRE [facility] REC#: [id number] PT STATUS: REG ER : 1985 PHYSICIAN: TANYA ERVIN MD ADMIT DATE: 05/19/21/ER FS Signed Date of Exam:05/19/21 KNEE 3 VIEW LEFT EXAMINATION: Left knee 3 views. HISTORY: Foreign body, injury. COMPARISON: None available. FINDINGS: There is a 14 x 3 mm linear foreign body in the medial aspect of the right knee soft tissues. No acute fracture is seen. There is overlying soft tissue swelling. Alignment is normal. No joint effusion. IMPRESSION: Linear foreign body in the soft tissues in the medial aspect of the right knee. Dictated by: Dictated on workstation # [id number] Dict: 05/19/211936 Trans: 05/19/211945 PJE [id number] Interpreted by: LATONYA PURDY MD Electronically signed by: LATNOYA PURDY MD 05/19/211945 Diagonstic Imaging: Xray Plain Films/CT/US/NM/MRI: knee Comments 2 view knee x-ray with skin marker over the wound viewed by me and report reviewed. See report below: NAME: HENRY BELTRE [facility] REC#: [id number] PT STATUS: REG ER : 1985 PHYSICIAN: TANYA ERVIN MD ADMIT DATE: 05/19/21/ER FS Signed Date of Exam:05/19/21 KNEE 2 VIEW LEFT EXAMINATION: Left knee 1 or 2 views. HISTORY: Positioning of foreign body. COMPARISON: Earlier the same day. FINDINGS: The radiopaque foreign body is 2 cm deep to the point of entrance. No change in the exam. IMPRESSION: The foreign body is 2 cm deep to the point of entrance. Dictated by: Dictated on workstation # [id number] Dict: 05/19/212012 Trans: 05/19/212101 PJE [id number] Interpreted by: LATONYA PURDY MD Electronically signed by: LATONYA PURDY MD 05/19/212101 Departure Impression Primary Impression: Foreign body of left knee Disposition: HOME, SELF-CARE Condition: Stable Departure-Patient Inst. Decision time for Depature: 21:35 Referrals: RIA LOPEZ MD (PCP) Primary Care Physician LUIS ENRIQUE SHIN DO Patient Instructions: Foreign Body in Skin ED Add. Discharge Instructions: Do not try to occlude the wound. It is better to allow it to drain. Complete your antibiotics as prescribed. You may use ibuprofen up to 600 mg every 6 hours as needed to control pain. Add hydrocodone as prescribed for pain not controlled by ibuprofen. Try not to manipulate the wound. Allow the foreign body to remain in the tissue. If you continue to have pain after the first couple of weeks of healing, you may contact Dr. Shin or the surgeon of your choice to discuss having the foreign body removed. You may shower but avoid submerging until the skin is sealed over. Monitor for signs of infection such as increasing swelling, increasing pain, puslike drainage, or fever. Return to care promptly if you notice the symptoms. Call with questions or concerns. All discharge instructions reviewed with patient and/or family. Voiced understanding. Scripts Hydrocodone/Acetaminophen (Hydrocodone-Acetamin 5-325 mg) 1 Each Tablet 1 TAB PO Q4H PRN for PAIN-MODERATE (5-7), #10 TAB Prov: TANYA ERVIN MD 05/19/21 Sulfamethoxazole/Trimethoprim (Bactrim Ds Tablet) 1 Each Tablet 1 EACH PO BID, #14 TAB Prov: TANYA ERVIN MD 05/19/21 Work/School Note: Work Release Form Date Seen in the Emergency Department: May 19, 2021 Return to Work: May 21, 2021 Restrictions: No Restrictions Copy Copies To 1: LUIS ENRIQUE SHIN JOSHUA T MD May 19, 2021 19:33
--- NOTE | 2021-05-19 19:42 | Diagnostic Imaging Report ---
EXAMINATION: Left knee 3 views. HISTORY: Foreign body, injury. COMPARISON: None available. FINDINGS: There is a 14 x 3 mm linear foreign body in the medial aspect of the right knee soft tissues. No acute fracture is seen. There is overlying soft tissue swelling. Alignment is normal. No joint effusion. IMPRESSION: Linear foreign body in the soft tissues in the medial aspect of the right knee. Dictated by: Dictated on workstation # [id number]
--- NOTE | 2021-05-19 20:16 | Diagnostic Imaging Report ---
EXAMINATION: Left knee 1 or 2 views. HISTORY: Positioning of foreign body. COMPARISON: Earlier the same day. FINDINGS: The radiopaque foreign body is 2 cm deep to the point of entrance. No change in the exam. IMPRESSION: The foreign body is 2 cm deep to the point of entrance. Dictated by: Dictated on workstation # [id number]
[2021-05-19] MEDS ORDERED: ACHD5005 PO (21:36)
[2021-05-19] MEDS ORDERED: SULF1TAB38 PO (21:36)
[2021-05-19] MEDS ORDERED: HYDROcodone/APAP 5 MG/325 MG (LORTAB) TAB PO ONE (21:45)
[2021-05-19 21:55] VITALS: BP 168/92
== END 2021-05-19 21:55 | disposition home or self-care (01) ==
LOC: ER FS 19:09
DX: S81.022A Laceration with foreign body, left knee, initial encounter (principal); J45.909 Unspecified asthma, uncomplicated; F17.210 Nicotine dependence, cigarettes, uncomplicated; Z23 Encounter for immunization; W22.8XXA Striking against or struck by other objects, initial encounter
CPT/HCPCS: 73560; 73562; 90715

== ENCOUNTER 2022-03-10 12:59 | Emergency (ER) | payer BC, OTHER ==
[~2022-03-10] VITALS: Ht 190.5 cm; Wt 125.0 kg
[2022-03-10 12:59] VITALS: BP 184/110
[~2022-03-10 12:59] MED LIST: ACHD5005 PO; SULF1TAB38 PO
[2022-03-10] MEDS ORDERED: methylPREDNISolone 125 MG (Solu-MEDROL) VIAL IV STA (13:03)
--- NOTE | 2022-03-10 13:09 | ED Chest Pain ---
General Stated Complaint: CHEST PAIN History of Present Illness Date Seen by Provider: Mar 10, 2022 Time Seen by Provider: 13:00 Initial Comments 36-year-old male presents with some left-sided chest pain. He also reports that the pain radiates into his left arm. He had some nausea some vomiting and felt like he was going to blackout. He reports pain started about an hour ago. Patient does have a history of COPD continues to smoke. He took an inhaler earlier today. Reports over the last month that this is happened about 5 times. Patient is also very anxious. Patient reports his mom is post to have brain surgery next Monday and he is very nervous about that he was thinking about this when the symptoms happen. Patient is very anxious upon arrival. Patient does report that he went home and took 2 aspirins. Allergies and Home Medications Allergies Coded Allergies: No Known Drug Allergies (Unverified , 05/19/21) Patient Home Medication List Home Medication List Reviewed: Yes Hydrocodone/Acetaminophen (Hydrocodone-Acetamin 5-325 mg) 1 Each Tablet, 1 TAB PO Q4H PRN for PAIN-MODERATE (5-7) Prescribed by: TANYA RAO on 05/19/212136 Sulfamethoxazole/Trimethoprim (Bactrim Ds Tablet) 1 Each Tablet, 1 EACH PO BID Prescribed by: TANYA RAO on 05/19/212135 Review of Systems Review of Systems Constitutional: see HPI; No chills, No fever; malaise EENTM: No Symptoms Reported Respiratory: See HPI Cardiovascular: Chest Pain Gastrointestinal: Denies Abdomen Distended, Denies Abdominal Pain, Denies Diarrhea; Nausea, Vomiting Genitourinary: No Symptoms Reported Musculoskeletal: see HPI Skin: no symptoms reported Psychiatric/Neurological: No Symptoms Reported Endocrine: No Symptoms Reported Past Yatylow-Txtcbg-Caasmi Hx Immunizations Up To Date First/Initial COVID19 Vaccinat: October 2020 J&J Past Medical History Surgeries: Yes (facial and head reconstruction age 3 from dog attack trauma, spider bites ) Abdominal Respiratory: Yes Asthma Cardiac: No Neurological: No Reproductive Disorders: No Genitourinary: No Gastrointestinal: No Musculoskeletal: No Endocrine: No HEENT: No Cancer: No Psychosocial: No Integumentary: No Physical Exam Vital Signs Vital Signs - First Documented 03/10/22 12:59 Temp 36.1 Pulse 78 Resp 18 B/P (MAP) 184/110 (134) Pulse Ox 99 O2 Delivery Room Air Capillary Refill : Height, Weight, BMI Height: '" Weight: lbs. oz. kg; 32.00 BMI Method: General Appearance: No Apparent Distress, WD/WN Neck: Non Tender, Supple Respiratory: Lungs Clear, Normal Breath Sounds Cardiovascular: Regular Rate, Rhythm, No Edema Gastrointestinal: Non Tender, Soft Extremity: Normal Range of Motion, Non Tender Neurologic/Psychiatric: Alert, Oriented x3, Other (Anxious) Skin: Normal Color, Warm/Dry Progress/Results/Core Measures Results/Orders Lab Results Laboratory Tests Test 03/10/22 13:05 03/10/22 15:49 03/10/22 15:55 Range/Units White Blood Count 9.9 4.3-11.0 10^3/uL Red Blood Count 4.85 4.30-5.52 10^6/uL Hemoglobin 15.4 13.3-17.7 g/dL Hematocrit 43 40-54 % Mean Corpuscular Volume 89 80-99 fL Mean Corpuscular Hemoglobin 32 25-34 pg Mean Corpuscular Hemoglobin Concent 36 32-36 g/dL Red Cell Distribution Width 14.4 10.0-14.5 % Platelet Count 269 130-400 10^3/uL Mean Platelet Volume 10.3 9.0-12.2 fL Immature Granulocyte % (Auto) 0 % Neutrophils (%) (Auto) 56 42-75 % Lymphocytes (%) (Auto) 33 12-44 % Monocytes (%) (Auto) 6 0-12 % Eosinophils (%) (Auto) 4 0-10 % Basophils (%) (Auto) 1 0-10 % Neutrophils # (Auto) 5.5 1.8-7.8 10^3/uL Lymphocytes # (Auto) 3.2 1.0-4.0 10^3/uL Monocytes # (Auto) 0.6 0.0-1.0 10^3/uL Eosinophils # (Auto) 0.4 H 0.0-0.3 10^3/uL Basophils # (Auto) 0.1 0.0-0.1 10^3/uL Immature Granulocyte # (Auto) 0.0 0.0-0.1 10^3/uL Prothrombin Time 12.4 12.2-14.7 SEC INR Comment 0.9 0.8-1.4 Activated Partial Thromboplast Time 26 24-35 SEC Sodium Level 138 135-145 MMOL/L Potassium Level 4.0 3.6-5.0 MMOL/L Chloride Level 104 98-107 MMOL/L Carbon Dioxide Level 24 21-32 MMOL/L Anion Gap 10 5-14 MMOL/L Blood Urea Nitrogen 10 7-18 MG/DL Creatinine 0.98 0.60-1.30 MG/DL Estimat Glomerular Filtration Rate 101 BUN/Creatinine Ratio 10 Glucose Level 91 70-105 MG/DL Calcium Level 9.5 8.5-10.1 MG/DL Corrected Calcium 9.3 8.5-10.1 MG/DL Magnesium Level 2.0 1.6-2.4 MG/DL Total Bilirubin 0.2 0.1-1.0 MG/DL Aspartate Amino Transf (AST/SGOT) 21 5-34 U/L Alanine Aminotransferase (ALT/SGPT) 18 0-55 U/L Alkaline Phosphatase 101 40-136 U/L Myoglobin 185.3 H <72.0 NG/ML Troponin I < 0.30 < 0.30 <0.30 NG/ML Total Protein 6.8 6.4-8.2 GM/DL Albumin 4.3 3.2-4.5 GM/DL Glucometer 104 70-110 MG/DL My Orders Orders - DISLA,DEISI L DO Cbc With Automated Diff (03/10/22 13:03) Magnesium (03/10/22 13:03) Chest 1 View Ap/Pa Only (03/10/22 13:03) Ekg Tracing (03/10/22 13:03) Comprehensive Metabolic Panel (03/10/22 13:03) Myoglobin Serum (03/10/22 13:03) Protime With Inr (03/10/22 13:03) Partial Thromboplastin Time (03/10/22 13:03) Monitor-Rhythm Ecg Trace Only (03/10/22 13:03) Lipid Panel (03/11/22 06:00) Aspirin Chewable Tablet (Baby Aspirin Ch (03/10/22 13:15) Ed Iv/Invasive Line Start (03/10/22 13:03) Troponin I Fs (03/10/22 13:03) Albuterol/Ipra Inhalation Soln (Duoneb I (03/10/22 13:15) Methylprednisolone Sod Succ (Solu-Medrol (03/10/22 13:03) Svn Small Volume Nebulizer (03/10/22 13:03) Troponin I Fs (03/10/22 15:06) Medications Given in ED Current Medications Medications Dose Ordered Sig/Jocy Route Start Time Stop Time Status Last Admin Dose Admin Albuterol/ Ipratropium 3 ml ONCE ONCE INH 03/10/22 13:15 03/10/22 13:16 DC 03/10/22 13:43 3 ML Vital Signs/I&O 03/10/22 03/10/22 12:59 13:30 Temp 36.1 Pulse 78 67 Resp 18 16 B/P (MAP) 184/110 (134) 167/104 Pulse Ox 99 97 O2 Delivery Room Air Room Air Progress Progress Note : Progress Note Patient is feeling significantly better. Patient with 2 negative troponins, negative EKG, negative chest x-ray and negative labs. I did discuss with henry ent he does have moderate coronary risk and discussed patient being admitted for observation for further troponin rule out and possible stress test. However patient declined admission at this time. Patient states he will follow-up with a primary care provider and discuss outpatient stress test. Patient did feel better following breathing treatment. I suspect he has some mild underlying COPD along with some stress reaction and anxiety due to being worried about his mom's upcoming surgery. Patient will be discharged home in stable condition as requested. Initial ECG Impression Date: Mar 10, 2022 Initial ECG Impression Time: 13:03 Initial ECG Rate: 75 Initial ECG Rhythm: Normal Sinus Initial ECG Impression: Normal Comment No acute ST changes, ST elevation or other acute abnormalities Diagnostic Imaging Diagonstic Imaging: Xray Plain Films/CT/US/NM/MRI: chest Comments Date of Exam:03/10/22 CHEST 1 VIEW AP/PA ONLY INDICATION: Chest pain Portable chest 1:08 PM Heart size and pulmonary vascularity are normal. Lungs are clear. There are no effusions or pneumothoraces. IMPRESSION: No acute abnormalities in the chest. Departure Impression Primary Impression: Acute reaction to situational stress Additional Impressions: Chest pain Qualified Codes: R07.9 - Chest pain, unspecified COPD (chronic obstructive pulmonary disease) Qualified Codes: J42 - Unspecified chronic bronchitis Disposition: 01 HOME, SELF-CARE Condition: Stable Departure-Patient Inst. Referrals: RIA LOPEZ MD (PCP) Primary Care Physician Patient Instructions: Chest Pain, Tips on Positive Thinking, Chronic Obstructive Pulmonary Disease (COPD) (DC) Add. Discharge Instructions: Please follow-up with your primary care provider in the next couple days for repeat evaluation and consider outpatient stress test DEISI DISLA DO Mar 10, 2022 13:09
[2022-03-10 13:12] LABS: BASOPHILS # (AUTO) 0.1 10^3/uL (0.0-0.1); BASOPHILS % (AUTO) 1 % (0-10); EOSINOPHILS # (AUTO) 0.4 10^3/uL (0.0-0.3); EOSINOPHILS % (AUTO) 4 % (0-10); HEMATOCRIT 43 % (40-54); HEMOGLOBIN 15.4 g/dL (13.3-17.7); LYMPHOCYTES # (AUTO) 3.2 10^3/uL (1.0-4.0); LYMPHOCYTES % (AUTO) 33 % (12-44); MEAN CORPUSCULAR HEMOGLOBIN 32 pg (25-34); MEAN CORPUSCULAR HGB CONC 36 g/dL (32-36); MEAN CORPUSCULAR VOLUME 89 fL (80-99); MEAN PLATELET VOLUME 10.3 fL (9.0-12.2); MONOCYTES # (AUTO) 0.6 10^3/uL (0.0-1.0); MONOCYTES % (AUTO) 6 % (0-12); NEUTROPHILS # (AUTO) 5.5 10^3/uL (1.8-7.8); NEUTROPHILS % (AUTO) 56 % (42-75); PLATELET COUNT 269 10^3/uL (130-400); WHITE BLOOD COUNT 9.9 10^3/uL (4.3-11.0)
--- NOTE | 2022-03-10 13:12 | Diagnostic Imaging Report ---
INDICATION: Chest pain Portable chest 1:08 PM Heart size and pulmonary vascularity are normal. Lungs are clear. There are no effusions or pneumothoraces. IMPRESSION: No acute abnormalities in the chest. Dictated by: Dictated on workstation # [id number]
[2022-03-10] MEDS ORDERED: ASPIRIN 81 MG CHEW (CHILDREN'S ASA) PO ONE (13:15)
[2022-03-10] MEDS ORDERED: RT-ALBUTEROL/IPRATROPIUM 3 ML (DUONEB) VIAL INH ONE (13:15)
[2022-03-10 13:32] LABS: INR 0.9 (0.8-1.4); PROTHROMBIN TIME PATIENT 12.4 SEC (12.2-14.7)
[2022-03-10 13:49] LABS: CALCIUM 9.5 MG/DL (8.5-10.1); CREATININE SERUM 0.98 MG/DL (0.60-1.30)
[2022-03-10 13:50] LABS: BILIRUBIN,TOTAL 0.2 MG/DL (0.1-1.0)
[2022-03-10 13:51] LABS: ALBUMIN 4.3 GM/DL (3.2-4.5); TOTAL PROTEIN 6.8 GM/DL (6.4-8.2)
[2022-03-10] MEDS ORDERED: PIPERACILLIN SODIUM/TAZOBACTAM 4.5 GM in NS (IVPB) 100 ML IV ONE (14:15)
== END 2022-03-10 16:45 | disposition home or self-care (01) ==
LOC: EDUNIT# 12:59 → ER FS 13:00
DX: J44.9 Chronic obstructive pulmonary disease, unspecified (principal); F43.9 Reaction to severe stress, unspecified; F17.200 Nicotine dependence, unspecified, uncomplicated; Z28.310 Unvaccinated for COVID-19
CPT/HCPCS: 36415; 71045; 80053; 82947; 83735; 83874; 84484; 85025; 85610; 85730; 93005; 93041

== ENCOUNTER → 2022-04-28 | Outpatient (CLI) | payer BC ==
[2022-04-28 14:08] VITALS: BP 121/70
--- NOTE | 2022-04-28 16:34 | Cardiology Stress Test Report ---
TREADMILL STRESS TEST Date of procedure: 04/28/2022. Primary care provider: Pily Gardner MD. Admitting physician: Bubba Sinha Jr., MD. INDICATION: Chest pain. BASELINE ELECTROCARDIOGRAM: Sinus rhythm with borderline inferior Q waves. STRESS TEST PROCEDURE: The patient was exercised for a total of 7 minutes and 0 seconds of the standard Rich protocol achieving a maximum MET level of 8.5. The resting heart rate was 82 bpm and the peak heart rate was 157 bpm, which repres ents 86% of the maximum predicted heart rate. The resting blood pressure was 121/70 mmHg and the peak blood pressure was 181/57 mmHg. This represents a normal heart rate and a normal blood pressure response to exercise. The test was stopped due to target heart rate attained. There was no chest discomfort during the test. There were isolated premature ventricular complexes during the test. There were no significant stress induced electrocardiogram changes. The patient exhibited good exercise capacity for age. IMPRESSION: 1. Normal heart rate and blood pressure response to exercise. 2. There was no chest discomfort or electrocardiogram changes during the test. 3. There were isolated premature ventricular complexes during the test. 4. The patient exhibited good exercise capacity for age at 7 minutes of the Rich protocol. 5. This is an unremarkable stress test other than the ventricular ectopy. Certain portions of this document may have been dictated utilizing voice recognition technology. Inherent to this technology, typographical and grammatical errors may exist. As much as I am diligent to identify and correct these mistakes, some errors may remain in the document. BUBBA SINHA JR, MD Apr 28, 2022 16:34
== END ==
LOC: CARD 13:49
PROVIDERS: ATTEND Internal Medicine Cardiovascular Disease
DX: R07.9 Chest pain, unspecified (principal)
CPT/HCPCS: 93017

== ENCOUNTER → 2022-05-03 | Outpatient (CLI) | payer BC | LOC: CARDFS 14:52 | PROVIDERS: ATTEND Internal Medicine Cardiovascular Disease | DX: I51.7 Cardiomegaly (principal) | CPT/HCPCS: 93306 ==

== ENCOUNTER → 2022-07-13 | Outpatient (CLI) | payer BC ==
[~2022-07-13] MED LIST changes: +CATHETER FLUSH 10 ML SYR IV PRN; +HOLD METFORMIN - RECEIVED CONTRAST 20 ML VIAL IV SCH; +IOHEXOL 350 MG/ML 100 ML (OMNIPAQUE 350) VIAL IV ONE; +NS 100 ML (IVPB) BAG IV ONE
[2022-07-13 13:18] LABS: CREATININE SERUM 1.32 MG/DL (0.60-1.30); POTASSIUM 4.4 MMOL/L (3.6-5.0)
[2022-07-13 13:19] LABS: ALBUMIN 4.5 GM/DL (3.2-4.5); BILIRUBIN,TOTAL 0.4 MG/DL (0.1-1.0); CALCIUM 9.8 MG/DL (8.5-10.1); TOTAL PROTEIN 7.4 GM/DL (6.4-8.2)
--- NOTE | 2022-07-13 14:41 | Diagnostic Imaging Report ---
PROCEDURE: CT head with and without contrast. TECHNIQUE: Multiple contiguous axial images were obtained through the brain before and after the administration of intravenous contrast. Auto Exposure Controls were utilized during the CT exam to meet ALARA standards for radiation dose reduction. INDICATION: Persistent headaches for 2 months. Patient has a family history of aneurysms. No prior studies are available for comparison. The ventricles and sulci are within normal limits. No sulcal effacement or midline shift is identified. There is no acute intra-axial or extra-axial hemorrhage. No enhancing lesions are seen. No definite aneurysm is detected. IMPRESSION: Unremarkable pre and postcontrast CT of the brain. Dictated by: Dictated on workstation # [id number]
== END ==
LOC: LAB FS 12:34
PROVIDERS: ATTEND Allergy & Immunology
DX: R51.9 Headache, unspecified (principal); I10 Essential (primary) hypertension; Z82.49 Family history of ischemic heart disease and other diseases of the circulatory system
CPT/HCPCS: 36415; 70470; 80053; Q9967

== ENCOUNTER 2022-08-01 12:34 | Emergency (ER) | payer BC ==
[~2022-08-01] VITALS: Ht 190.5 cm; Wt 113.4 kg
[~2022-08-01 12:34] MED LIST changes: -CATHETER FLUSH 10 ML SYR IV PRN; -HOLD METFORMIN - RECEIVED CONTRAST 20 ML VIAL IV SCH; -IOHEXOL 350 MG/ML 100 ML (OMNIPAQUE 350) VIAL IV ONE; -NS 100 ML (IVPB) BAG IV ONE
[2022-08-01 12:37] VITALS: BP 169/90
--- NOTE | 2022-08-01 12:50 | ED EENT ---
History of Present Illness General Stated Complaint: RT OCULAR/HEAD PAIN History of Present Illness Date Seen by Provider: Aug 01, 2022 Time Seen by Provider: 12:45 Initial Comments 37-year-old male presents with right face and head pain. Patient reports that l ast week he developed some right-sided face pain and a little bit of redness and swelling. He went to his primary care provider and was started on clindamycin with concern for maybe a cellulitis. He reports that since then he has continued to have worsening pain. That it hurts to even slightly brush his face or scalp on the right side. That any little thing causes severe pain. Patient denies any rash that was associated with it. He reports that the swelling erythema is resolved but the pain is significantly worse. Patient's had a negative CT with contrast last week. Patient presents now because the pain is just getting "unbearable" Allergies and Home Medications Allergies Coded Allergies: No Known Drug Allergies (Unverified , 05/19/21) Patient Home Medication List Home Medication List Reviewed: Yes Hydrocodone/Acetaminophen (Hydrocodone-Acetamin 5-325 mg) 1 Each Tablet, 1 TAB PO Q4H PRN for PAIN-MODERATE (5-7) Prescribed by: TANYA RAO on 05/19/212136 Sulfamethoxazole/Trimethoprim (Bactrim Ds Tablet) 1 Each Tablet, 1 EACH PO BID Prescribed by: TANYA RAO on 05/19/212135 Review of Systems Review of Systems Constitutional: No chills, No fever Eyes: No Symptoms Reported Ears: See HPI Nose: no symptoms reported Mouth: no symptoms reported Respiratory: no symptoms reported Cardiovascular: no symptoms reported Gastrointestinal: no symptoms reported Musculoskeletal: no symptoms reported Past Lswgowj-Rtmyjt-Wxcqqs Hx Immunizations Up To Date First/Initial COVID19 Vaccinat: October 2020 J&J Past Medical History Surgeries: Yes (facial and head reconstruction age 3 from dog attack trauma, spider bites ) Abdominal Respiratory: Yes Asthma Cardiac: No Neurological: No Reproductive Disorders: No Genitourinary: No Gastrointestinal: No Musculoskeletal: No Endocrine: No HEENT: No Cancer: No Psychosocial: No Integumentary: No Physical Exam Vital Signs Vital Signs - First Documented 08/01/22 12:37 Temp 36.7 Pulse 104 Resp 16 B/P (MAP) 169/90 (116) Pulse Ox 97 O2 Delivery Room Air Height, Weight, BMI Height: '" Weight: lbs. oz. kg; 34.00 BMI Method: General Appearance: mild distress Eyes: bilateral eye normal inspection Ears: bilateral ear auricle normal Mouth/Throat: normal mouth inspection, pharynx normal Neck: non-tender, full range of motion Cardiovascular: normal peripheral pulses, regular rate, rhythm Respiratory: lungs clear, normal breath sounds Neurologic/Psychiatric: alert, normal mood/affect, other (Severe pain along trigeminal nerve V1 and V2 distribution) Skin: normal color, warm/dry; No rash Progress/Results/Core Measures Results/Orders Lab Results Laboratory Tests Test 08/01/22 13:06 Range/Units White Blood Count 13.5 H 4.3-11.0 10^3/uL Red Blood Count 5.14 4.30-5.52 10^6/uL Hemoglobin 16.0 13.3-17.7 g/dL Hematocrit 45 40-54 % Mean Corpuscular Volume 88 80-99 fL Mean Corpuscular Hemoglobin 31 25-34 pg Mean Corpuscular Hemoglobin Concent 36 32-36 g/dL Red Cell Distribution Width 13.3 10.0-14.5 % Platelet Count 286 130-400 10^3/uL Mean Platelet Volume 10.3 9.0-12.2 fL Immature Granulocyte % (Auto) 0 % Neutrophils (%) (Auto) 75 42-75 % Lymphocytes (%) (Auto) 16 12-44 % Monocytes (%) (Auto) 5 0-12 % Eosinophils (%) (Auto) 3 0-10 % Basophils (%) (Auto) 1 0-10 % Neutrophils # (Auto) 10.0 H 1.8-7.8 10^3/uL Lymphocytes # (Auto) 2.2 1.0-4.0 10^3/uL Monocytes # (Auto) 0.7 0.0-1.0 10^3/uL Eosinophils # (Auto) 0.3 0.0-0.3 10^3/uL Basophils # (Auto) 0.1 0.0-0.1 10^3/uL Immature Granulocyte # (Auto) 0.1 0.0-0.1 10^3/uL Erythrocyte Sedimentation Rate 11 0-15 MM/HR Sodium Level 134 L 135-145 MMOL/L Potassium Level 4.2 3.6-5.0 MMOL/L Chloride Level 101 98-107 MMOL/L Carbon Dioxide Level 22 21-32 MMOL/L Anion Gap 11 5-14 MMOL/L Blood Urea Nitrogen 16 7-18 MG/DL Creatinine 1.05 0.60-1.30 MG/DL Estimat Glomerular Filtration Rate 93 BUN/Creatinine Ratio 15 Glucose Level 106 H 70-105 MG/DL Calcium Level 9.5 8.5-10.1 MG/DL Corrected Calcium 9.2 8.5-10.1 MG/DL Total Bilirubin 0.4 0.1-1.0 MG/DL Aspartate Amino Transf (AST/SGOT) 28 5-34 U/L Alanine Aminotransferase (ALT/SGPT) 29 0-55 U/L Alkaline Phosphatase 92 40-136 U/L C-Reactive Protein 3.80 H <0.50 MG/DL Total Protein 7.3 6.4-8.2 GM/DL Albumin 4.4 3.2-4.5 GM/DL My Orders Orders - DISLA,DEISI L DO Cbc With Automated Diff (08/01/22 12:51) Comprehensive Metabolic Panel (08/01/22 12:51) Erythrocyte Sedimentation Rate (08/01/22 12:51) Crp Fs (08/01/22 12:51) Varicella Zoster Antibody G&M (08/01/22 12:51) Gabapentin Capsule/Tablet (Neurontin Cap (08/01/22 14:00) Ct Head/Face/Cervical Wo (08/01/22 14:04) Medications Given in ED Current Medications Medications Dose Ordered Sig/Jocy Route Start Time Stop Time Status Last Admin Dose Admin Gabapentin 100 mg ONCE ONCE PO 08/01/22 14:00 08/01/22 14:01 DC 08/01/22 13:59 100 MG Vital Signs/I&O 08/01/22 12:37 Temp 36.7 Pulse 104 Resp 16 B/P (MAP) 169/90 (116) Pulse Ox 97 O2 Delivery Room Air Progress Progress Note : Progress Note Patient with elevated white count elevated CRP consistent with likely an infectious etiology. Patient is currently on antibiotic for questionable cellulitis. His pain distribution is along the trigeminal nerve V1 and V2 distributions. Discussed with him that there is a possibility he could have been herpes zoster. Due to it being a neurologic pain I will start him on gabapentin and acyclovir in addition to his current antibiotic. Patient CT head, maxillofacial and cervical reviewed and showed no acute findings or signs of inflammation.. I would recommend patient follows up with supervisor [facility] [employer] to have his vision and eyes checked to ensure no zoster. pt should continue his abx. pt stable and discharged home. Diagnostic Imaging Diagonstic Imaging: CT Plain Films/CT/US/NM/MRI: head Comments Date of Exam:08/01/22 CT HEAD/FACE/CERVICAL WO PROCEDURE: CT head, face, and cervical spine without contrast. TECHNIQUE: Multiple contiguous axial images were obtained through the head, neck, and facial bones without the use of intravenous contrast. Sagittal and coronal reformations through the cervical spine and facial bones were also performed. Auto Exposure Controls were utilized during the CT exam to meet ALARA standards for radiation dose reduction. INDICATION: Right-sided facial pain and swelling. COMPARISON: CT head without contrast 07/13/2022. FINDINGS: CT HEAD: No intracranial hemorrhage, mass effect, hydrocephalus, or extra-axial fluid collections. No CT evidence of a territorial infarction. The mastoids are unremarkable. The calvarium is intact. CT MAXILLOFACIAL: Polypoid mucosal thickening in the right maxillary sinus which is mild. Paranasal sinuses are otherwise clear. No maxillofacial fractures. Multiple maxillary and mandibular dental caries and periapical lucencies. No significant soft tissue swelling/edema or fluid collections are identified. The orbits are unremarkable. CT CERVICAL SPINE: Normal alignment. Vertebral body heights are preserved. No fractures. Severe degenerative endplate changes at C6-C7. No high-grade spinal canal stenosis is evident by CT. Visualized paravertebral soft tissues are unremarkable. The lung apices are clear. IMPRESSION: 1. No acute intracranial or cervical spine CT findings. 2. No maxillofacial fractures. 3. Multiple dental caries and periapical lucencies involving the maxillary and mandibular dentition. There is no adjacent significant inflammatory change or evidence of a fluid collection about the mandible or maxilla. Reviewed: Reviewed/Discussed Departure Impression Primary Impression: Trigeminal neuralgia of right side of face Disposition: 01 HOME, SELF-CARE Condition: Stable Departure-Patient Inst. Referrals: RIA LOPEZ MD (PCP) Primary Care Physician Patient Instructions: Trigeminal Neuralgia Add. Discharge Instructions: Please follow-up with your primary care provider for continued management and further evaluation. Please consider ophthalmology consultation Scripts Acyclovir (Acyclovir) 800 Mg Tablet 800 MG PO 5XD for 7 Days, #35 TAB Prov: DEISI DISLA DO 08/01/22 Gabapentin (Gabapentin) 100 Mg Capsule 100 MG PO Q8H for Neuropathic pain, #10 CAP Prov: DEISI DISLA DO 08/01/22 DEISI DISLA DO Aug 01, 2022 12:50
[2022-08-01 13:20] LABS: BASOPHILS # (AUTO) 0.1 10^3/uL (0.0-0.1); BASOPHILS % (AUTO) 1 % (0-10); EOSINOPHILS # (AUTO) 0.3 10^3/uL (0.0-0.3); EOSINOPHILS % (AUTO) 3 % (0-10); HEMATOCRIT 45 % (40-54); LYMPHOCYTES # (AUTO) 2.2 10^3/uL (1.0-4.0); LYMPHOCYTES % (AUTO) 16 % (12-44); MEAN CORPUSCULAR HEMOGLOBIN 31 pg (25-34); MEAN CORPUSCULAR HGB CONC 36 g/dL (32-36); MEAN CORPUSCULAR VOLUME 88 fL (80-99); MEAN PLATELET VOLUME 10.3 fL (9.0-12.2); MONOCYTES # (AUTO) 0.7 10^3/uL (0.0-1.0); MONOCYTES % (AUTO) 5 % (0-12); NEUTROPHILS % (AUTO) 75 % (42-75); PLATELET COUNT 286 10^3/uL (130-400); WHITE BLOOD COUNT 13.5 10^3/uL (4.3-11.0)
[2022-08-01 13:33] LABS: BILIRUBIN,TOTAL 0.4 MG/DL (0.1-1.0); CALCIUM 9.5 MG/DL (8.5-10.1); CREATININE SERUM 1.05 MG/DL (0.60-1.30); POTASSIUM 4.2 MMOL/L (3.6-5.0)
[2022-08-01 13:34] LABS: ALBUMIN 4.4 GM/DL (3.2-4.5); TOTAL PROTEIN 7.3 GM/DL (6.4-8.2)
[2022-08-01 13:40] LABS: ERYTHROCYTE SEDIMENTATION RATE 11 MM/HR (0-15)
[2022-08-01] MEDS ORDERED: GABAPENTIN 100 MG (NEURONTIN) CAP PO ONE (14:00)
--- NOTE | 2022-08-01 14:37 | Diagnostic Imaging Report ---
PROCEDURE: CT head, face, and cervical spine without contrast. TECHNIQUE: Multiple contiguous axial images were obtained through the head, neck, and facial bones without the use of intravenous contrast. Sagittal and coronal reformations through the cervical spine and facial bones were also performed. Auto Exposure Controls were utilized during the CT exam to meet ALARA standards for radiation dose reduction. INDICATION: Right-sided facial pain and swelling. COMPARISON: CT head without contrast 07/13/2022. FINDINGS: CT HEAD: No intracranial hemorrhage, mass effect, hydrocephalus, or extra-axial fluid collections. No CT evidence of a territorial infarction. The mastoids are unremarkable. The calvarium is intact. CT MAXILLOFACIAL: Polypoid mucosal thickening in the right maxillary sinus which is mild. Paranasal sinuses are otherwise clear. No maxillofacial fractures. Multiple maxillary and mandibular dental caries and periapical lucencies. No significant soft tissue swelling/edema or fluid collections are identified. The orbits are unremarkable. CT CERVICAL SPINE: Normal alignment. Vertebral body heights are preserved. No fractures. Severe degenerative endplate changes at C6-C7. No high-grade spinal canal stenosis is evident by CT. Visualized paravertebral soft tissues are unremarkable. The lung apices are clear. IMPRESSION: 1. No acute intracranial or cervical spine CT findings. 2. No maxillofacial fractures. 3. Multiple dental caries and periapical lucencies involving the maxillary and mandibular dentition. There is no adjacent significant inflammatory change or evidence of a fluid collection about the mandible or maxilla. Dictated by: Dictated on workstation # [id number]
[2022-08-01] MEDS ORDERED: GABA-486 PO (14:51)
[2022-08-01] MEDS ORDERED: ACYC-112 PO (14:51)
== END 2022-08-01 14:55 | disposition home or self-care (01) ==
LOC: EDUNIT# 12:34 → ER FS 12:35
DX: G50.0 Trigeminal neuralgia (principal); D72.829 Elevated white blood cell count, unspecified; R79.82 Elevated C-reactive protein (CRP)
CPT/HCPCS: 36415; 70450; 70486; 72125; 80053; 85025; 85652; 86141; 86787

== ENCOUNTER 2023-01-06 11:20 | Emergency (ER) | payer BC, OTHER ==
[~2023-01-06] VITALS: Ht 190.5 cm; Wt 117.9 kg
[~2023-01-06 11:20] MED LIST changes: +ACYC-112 PO; +GABA-486 PO
--- NOTE | 2023-01-06 11:29 | ED General ---
General Stated Complaint: SOB Source of Information: Patient Exam Limitations: No Limitations History of Present Illness Date Seen by Provider: Jan 06, 2023 Time Seen by Provider: 11:18 Initial Comments 37-year-old male presents to the emergency department today for cramping. He states symptoms started abruptly when he stood up at work. He was going to walk to a ladder and felt that all his muscles tensed up, especially his arm muscles. He states he was unable to make it to the latter and that "I lost my vision." This was brief. He is unsure if he passed out or not. On EMS arrival he was breathing about 60 times a minute and had contractures of his upper extremities stating they were cramping. He was also tachycardic. He was given a DuoNeb though he was not hypoxic and not wheezing. He was also given a milligram of Ativan which seemed to help some. He states he is never had similar symptoms like this in the past. He does have a history of asthma and hypertension. He denies any recent illness to include fevers chills chest pain abdominal pain, changes in bowel or bladder habits. All other systems reviewed and negative except documented per HPI. Voice recognition software was used to help create this chart Allergies and Home Medications Allergies Coded Allergies: No Known Drug Allergies (Unverified , 05/19/21) Patient Home Medication List Home Medication List Reviewed: Yes Acyclovir (Acyclovir) 800 Mg Tablet, 800 MG PO 5XD Prescribed by: DEISI DISLA on 08/01/22 145 Gabapentin (Gabapentin) 100 Mg Capsule, 100 MG PO Q8H Prescribed by: DEISI DISLA on 08/01/22 1451 Hydrocodone/Acetaminophen (Hydrocodone-Acetamin 5-325 mg) 1 Each Tablet, 1 TAB PO Q4H PRN for PAIN-MODERATE (5-7) Prescribed by: TANYA RAO on 05/19/212136 Sulfamethoxazole/Trimethoprim (Bactrim Ds Tablet) 1 Each Tablet, 1 EACH PO BID Prescribed by: TANYA RAO on 05/19/212135 Review of Systems Review of Systems Constitutional: see HPI Past Omzkzgf-Xyrucu-Aljznf Hx Patient Social History Tobacco Use?: Yes Use of E-Cig and/or Vaping dev: No Substance use?: No Alcohol Use?: No Immunizations Up To Date First/Initial COVID19 Vaccinat: October 2020 J&J Past Medical History Surgeries: Yes (facial and head reconstruction age 3 from dog attack trauma, spider bites ) Abdominal Respiratory: Yes Asthma Cardiac: No Neurological: No Reproductive Disorders: No Genitourinary: No Gastrointestinal: No Musculoskeletal: No Endocrine: No HEENT: No Cancer: No Psychosocial: No Integumentary: No Physical Exam Vital Signs Vital Signs - First Documented 01/06/23 01/06/23 11:27 14:06 Temp 36.9 Pulse 137 Resp 28 B/P (MAP) 121/57 (78) Pulse Ox 95 O2 Delivery Room Air O2 Flow Rate 5.00 Capillary Refill : Height, Weight, BMI Height: '" Weight: lbs. oz. kg; 31.00 BMI Method: General Appearance: Other (Diaphoretic, appears to be uncomfortable) Eyes: Bilateral Eye Normal Inspection, Bilateral Eye PERRL, Bilateral Eye EOMI HEENT: PERRL/EOMI, Normal ENT Inspection, Pharynx Normal Neck: Full Range of Motion, Normal Inspection, Non Tender, Supple Respiratory: Chest Non Tender, Lungs Clear, Normal Breath Sounds, No Accessory Muscle Use, No Respiratory Distress Cardiovascular: No Murmur, Normal Peripheral Pulses, Tachycardia Gastrointestinal: Normal Bowel Sounds, No Organomegaly, No Pulsatile Mass, Non Tender, Soft Back: Normal Inspection, No Vertebral Tenderness Extremity: Normal Capillary Refill, Normal Inspection, Normal Range of Motion, Non Tender, No Calf Tenderness Neurologic/Psychiatric: Alert, Oriented x3, No Motor/Sensory Deficits, Normal Mood/Affect, certified medical asst II-XII Norm as Tested Skin: Normal Color, Diaphoresis Lymphatic: No Adenopathy Progress/Results/Core Measures Suspected Sepsis SIRS Temperature: Pulse: Respiratory Rate: Laboratory Tests 01/06/23 11:30: White Blood Count 14.1H Blood Pressure / Mean: Laboratory Tests 01/06/23 11:30: Creatinine 3.83H, Platelet Count 344, Total Bilirubin 0.5 Results/Orders Lab Results Laboratory Tests Test 01/06/23 11:30 01/06/23 12:15 Range/Units White Blood Count 14.1 H 4.3-11.0 10^3/uL Red Blood Count 5.10 4.30-5.52 10^6/uL Hemoglobin 16.2 13.3-17.7 g/dL Hematocrit 46 40-54 % Mean Corpuscular Volume 90 80-99 fL Mean Corpuscular Hemoglobin 32 25-34 pg Mean Corpuscular Hemoglobin Concent 35 32-36 g/dL Red Cell Distribution Width 13.0 10.0-14.5 % Platelet Count 344 130-400 10^3/uL Mean Platelet Volume 10.9 9.0-12.2 fL Immature Granulocyte % (Auto) 0 % Neutrophils (%) (Auto) 62 42-75 % Lymphocytes (%) (Auto) 29 12-44 % Monocytes (%) (Auto) 6 0-12 % Eosinophils (%) (Auto) 2 0-10 % Basophils (%) (Auto) 1 0-10 % Neutrophils # (Auto) 8.8 H 1.8-7.8 10^3/uL Lymphocytes # (Auto) 4.0 1.0-4.0 10^3/uL Monocytes # (Auto) 0.8 0.0-1.0 10^3/uL Eosinophils # (Auto) 0.3 0.0-0.3 10^3/uL Basophils # (Auto) 0.2 H 0.0-0.1 10^3/uL Immature Granulocyte # (Auto) 0.0 0.0-0.1 10^3/uL Neutrophils % (Manual) 72 % Lymphocytes % (Manual) 22 % Monocytes % (Manual) 4 % Eosinophils % (Manual) 2 % D-Dimer 0.40 0.00-0.49 UG/ML Sodium Level 135 135-145 MMOL/L Potassium Level 3.9 3.6-5.0 MMOL/L Chloride Level 98 98-107 MMOL/L Carbon Dioxide Level 17 L 21-32 MMOL/L Anion Gap 20 H 5-14 MMOL/L Blood Urea Nitrogen 38 H 7-18 MG/DL Creatinine 3.83 H 0.60-1.30 MG/DL Estimat Glomerular Filtration Rate 20 BUN/Creatinine Ratio 10 Glucose Level 186 H 70-105 MG/DL Calcium Level 9.8 8.5-10.1 MG/DL Corrected Calcium 8.5-10.1 MG/DL Magnesium Level 2.5 H 1.6-2.4 MG/DL Total Bilirubin 0.5 0.1-1.0 MG/DL Aspartate Amino Transf (AST/SGOT) 20 5-34 U/L Alanine Aminotransferase (ALT/SGPT) 22 0-55 U/L Alkaline Phosphatase 73 40-136 U/L Total Protein 7.6 6.4-8.2 GM/DL Albumin 4.7 H 3.2-4.5 GM/DL Urine Color ORANGE Urine Clarity SL CLOUDY Urine pH 5.5 5-9 Urine Specific Reading >=1.030 1.016-1.022 Urine Protein TRACE H NEGATIVE Urine Glucose (UA) NEGATIVE NEGATIVE Urine Ketones NEGATIVE NEGATIVE Urine Nitrite NEGATIVE NEGATIVE Urine Bilirubin NEGATIVE NEGATIVE Urine Urobilinogen 0.2 < = 1.0 MG/DL Urine Leukocyte Esterase NEGATIVE NEGATIVE Urine RBC (Auto) NEGATIVE NEGATIVE Urine RBC 5-10 H /HPF Urine WBC 2-5 /HPF Urine Crystals NONE /LPF Urine Bacteria FEW H /HPF Urine Casts PRESENT /LPF Urine Hyaline Casts 5-10 H /LPF Urine Mucus MODERATE H /LPF Urine Culture Indicated YES Urine Opiates Screen NEGATIVE NEGATIVE Urine Oxycodone Screen NEGATIVE NEGATIVE Urine Methadone Screen NEGATIVE NEGATIVE Urine Propoxyphene Screen NEGATIVE NEGATIVE Urine Barbiturates Screen NEGATIVE NEGATIVE Ur Tricyclic Antidepressants Screen NEGATIVE NEGATIVE Urine Phencyclidine Screen NEGATIVE NEGATIVE Urine Amphetamines Screen NEGATIVE NEGATIVE Urine Methamphetamines Screen NEGATIVE NEGATIVE Urine Benzodiazepines Screen NEGATIVE NEGATIVE Urine Cocaine Screen NEGATIVE NEGATIVE Urine Cannabinoids Screen POSITIVE H NEGATIVE My Orders Orders - JASPER GALLO DO Cbc With Automated Diff (01/06/23 11:24) Comprehensive Metabolic Panel (01/06/23 11:24) Magnesium (01/06/23 11:24) Ua Culture If Indicated (01/06/23 11:24) Drug Screen Stat (Urine) (01/06/23 11:24) Ekg Tracing (01/06/23 11:24) Manual Differential (01/06/23 11:30) Fibrin Degradation Products (01/06/23 11:47) Lactated Ringers (Lr 1000 Ml Iv Solution (01/06/23 12:15) Creatine Kinase (01/06/23 12:07) Urine Culture (01/06/23 12:15) Ns Iv 1000 Ml (Sodium Chloride 0.9%) (01/06/23 13:30) Fentanyl Inj (Sublimaze Injection) (01/06/23 13:45) Medications Given in ED Current Medications Medications Dose Ordered Sig/Jocy Route Start Time Stop Time Status Last Admin Dose Admin Fentanyl Citrate 50 mcg ONCE ONCE IVP 01/06/23 13:45 01/06/23 13:46 DC 01/06/23 13:50 50 MCG Vital Signs/I&O 01/06/23 01/06/23 01/06/23 11:27 11:27 14:06 Temp 36.9 Pulse 137 97 Resp 28 23 B/P (MAP) 121/57 (78) 116/72 Pulse Ox 95 95 O2 Delivery Room Air Room Air OxyMask O2 Flow Rate 5.00 Capillary Refill : ECG Comment Sinus tachycardia with a rate of 120 bpm. Normal intervals. Normal axis. No ST or T wave abnormalities. No ectopy. No STEMI. Critical Care Note Critical Care Total Time (minutes) 60 Departure Communication (Admissions) Patient initially with diffuse tremor, generalized muscle weakness without any focal weakness whatsoever. He is hyperventilating and clearly anxious, diaphoretic. He was given Ativan in route via EMS and started on IV fluids, has about 500 cc in at the time of arrival. His blood pressures are initially stable in the 120 range. He is to gradually trend down, I think this is likely related to Ativan. He also was briefly hypoxic and required oxygen for short period of his stay however we were able to wean this off. Again I think this is related to Ativan. I did add a D-dimer given his hyperventilation and shortness of breath symptoms with near syncope. This was negative. No indication for CT angiography at this time. His tachycardia did improve with IV fluids. Unfortunately our facility does not have the capacity to do a total CK. I do believe he is likely in rhabdomyolysis with a normal creatinine a few months ago and a creatinine of 3.83 today with elevated BUN. He does have a slightly decreased CO2 level which could be related to his hyperventilation recently or could be related to his kidney injury. His potassium is normal. His EKG is nonischemic with no ectopy or dysrhythmia. I think this is likely related to working in the heat without adequate fluid hydration. 1230: I spoke with Dr Purdy at [facility]. She requests transfer to facility that has nephrology service. 1235: Spoke to Kyle bernard, Dr Torres, who accepts patient in admission to TCU. BP has been trending down slightly, now improving with IVF. He was only able to make about 5cc of urine despite significant IVF repletion. 1330: Kyle called back with bed number and number to call report. 1400: Transported by EMS in stable condition upon leaving. BP improved, 120/70 Impression Primary Impression: MANDI (acute kidney injury) Additional Impressions: Rhabdomyolysis Qualified Codes: M62.82 - Rhabdomyolysis Generalized weakness Disposition: XFER SHT-TRM HOSP Condition: Stable Departure-Patient Inst. Referrals: RIA LOPEZ MD (PCP) Primary Care Physician JASPER GALLO DO Jan 06, 2023 11:29
[2023-01-06 11:32] LABS: BASOPHILS # (AUTO) 0.2 10^3/uL (0.0-0.1); BASOPHILS % (AUTO) 1 % (0-10); EOSINOPHILS # (AUTO) 0.3 10^3/uL (0.0-0.3); EOSINOPHILS % (AUTO) 2 % (0-10); HEMATOCRIT 46 % (40-54); HEMOGLOBIN 16.2 g/dL (13.3-17.7); LYMPHOCYTES % (AUTO) 29 % (12-44); MEAN CORPUSCULAR HEMOGLOBIN 32 pg (25-34); MEAN CORPUSCULAR HGB CONC 35 g/dL (32-36); MEAN CORPUSCULAR VOLUME 90 fL (80-99); MEAN PLATELET VOLUME 10.9 fL (9.0-12.2); MONOCYTES # (AUTO) 0.8 10^3/uL (0.0-1.0); MONOCYTES % (AUTO) 6 % (0-12); NEUTROPHILS # (AUTO) 8.8 10^3/uL (1.8-7.8); NEUTROPHILS % (AUTO) 62 % (42-75); PLATELET COUNT 344 10^3/uL (130-400); WHITE BLOOD COUNT 14.1 10^3/uL (4.3-11.0)
[2023-01-06 11:49] LABS: EOSINOPHILS % (MANUAL) 2 %; LYMPHOCYTES % (MANUAL) 22 %; MONOCYTES % (MANUAL) 4 %; NEUTROPHILS % (MANUAL) 72 %
[2023-01-06 12:01] LABS: ALANINE AMINOTRANSFERASE 22 U/L (0-55); ALBUMIN 4.7 GM/DL (3.2-4.5); ALKALINE PHOSPHATASE 73 U/L (40-136); BILIRUBIN,TOTAL 0.5 MG/DL (0.1-1.0); BUN/CREATININE RATIO 10; CALCIUM 9.8 MG/DL (8.5-10.1); CARBON DIOXIDE 17 MMOL/L (21-32); CHLORIDE 98 MMOL/L (98-107); CREATININE SERUM 3.83 MG/DL (0.60-1.30); GFR ESTIMATED 20; GLUCOSE 186 MG/DL (70-105); MAGNESIUM 2.5 MG/DL (1.6-2.4); POTASSIUM 3.9 MMOL/L (3.6-5.0); SODIUM 135 MMOL/L (135-145); TOTAL PROTEIN 7.6 GM/DL (6.4-8.2)
[2023-01-06] MEDS ORDERED: LACTATED RINGERS 1,000 ML IV SCH (12:15)
[2023-01-06 12:21] LABS: BILIRUBIN,URINE NEGATIVE (NEGATIVE); CLARITY,URINE SL CLOUDY; COLOR,URINE ORANGE; GLUCOSE, URINE (UA) NEGATIVE (NEGATIVE); KETONES,URINE NEGATIVE (NEGATIVE); LEUKOCYTE ESTERASE ,URINE NEGATIVE (NEGATIVE); NITRITE,URINE NEGATIVE (NEGATIVE); PH,URINE 5.5 (5-9); PROTEIN,URINE TRACE (NEGATIVE)
[2023-01-06 12:26] LABS: BACTERIA,URINE FEW /HPF
[2023-01-06 12:30] LABS: AMPHETAMINE SCREEN, URINE NEGATIVE (NEGATIVE); BARBITURATE SCREEN URINE NEGATIVE (NEGATIVE); BENZODIAZEPINES SCREEN URINE NEGATIVE (NEGATIVE); CANNABINOID SCREEN, URINE POSITIVE (NEGATIVE); COCAINE SCREEN URINE NEGATIVE (NEGATIVE); METHADONE STAT NEGATIVE (NEGATIVE); OPIATE SCREEN URINE NEGATIVE (NEGATIVE); OXYCODONE STAT NEGATIVE (NEGATIVE); PROPOXYPHENE STAT NEGATIVE (NEGATIVE); TRICYCLIC ANTIDEPRESSANTS SCRE NEGATIVE (NEGATIVE)
[2023-01-06] MEDS ORDERED: NS IV 1000 ML 1,000 ML IV SCH (13:30)
[2023-01-06] MEDS ORDERED: fentaNYL INJ 100 MCG/2 ML AMP IVP ONE (13:45)
[2023-01-06 14:06] VITALS: BP 116/72
== END 2023-01-06 14:10 | disposition short-term general hospital (02) ==
LOC: EDUNIT# 11:20 → ER FS 11:21
DX: N17.9 Acute kidney failure, unspecified (principal); M62.82 Rhabdomyolysis
CPT/HCPCS: 36415; 80053; 80306; 81000; 82550; 83735; 85007; 85027; 85379; 87088; 93005